=== PATIENT | male | born 1960 | race Caucasian/White ===

== ENCOUNTER 2017-06-23 13:55 | Inpatient (IN) | payer OTHER ==
[~2017-06-23] VITALS: Ht 188 cm; Wt 68.9 kg
[2017-06-23 15:07] LABS: HEMOGLOBIN 14.6 g/dL (13.5-17.5); MCH 31.9 pg (26.0-34.0); MCV 93.9 fL (80.0-100.0); MEAN PLATELET VOLUME 9.8 fL (7.4-10.4); PLATELET COUNT 314 10x3/uL (130-400); RBC 4.58 10x6/uL (4.20-6.10); RDW 12.1 % (11.5-14.5); WBC 17.3 10x3/uL (4.8-10.8)
[2017-06-23 15:21] LABS: ALBUMIN 2.7 g/dL (3.4-5.0); ALKALINE PHOSPHATASE 161 U/L (46-116); ALT (SGPT) 106 U/L (10-68); BILIRUBIN - TOTAL 0.56 mg/dL (0.2-1.3); CALC OSMOLALITY 270 mosm/kg (275-300); CALCIUM 8.8 mg/dL (8.5-10.1); CARBON DIOXIDE 32.7 mmol/L (21.0-32.0); CHLORIDE - SERUM 95 mmol/L (98-107); CREATININE - SERUM 0.6 mg/dL (0.6-1.3); GLUCOSE 148 mg/dL (74-106); POTASSIUM - SERUM 3.6 mmol/L (3.5-5.1); PROTEIN - SERUM 8.1 g/dL (6.4-8.2); SODIUM 134 mmol/L (136-145); UREA NITROGEN 12 mg/dL (7-18); eGFR NON AFRICAN AMERICAN > 90 mL/min (90-120)
[2017-06-23 15:28] LABS: APPEARANCE HAZY (CLEAR); BILIRUBIN 1+ (NEGATIVE); COLOR DK YELLOW (YELLOW); GLUCOSE 100 mg/dL (NEGATIVE); KETONE SMALL mg/dL (NEGATIVE); LEUKOCYTE ESTERASE TRACE (NEGATIVE); NITRITE NEGATIVE (NEGATIVE); PH 5.5 (5.0-6.0); PROTEIN 3+ mg/dL (NEGATIVE); SPECIFIC GRAVITY 1.015 (1.005-1.020)
[2017-06-23 15:30] LABS: MAGNESIUM - SERUM 2.2 mg/dL (1.8-2.4); PRO BNP 995 pg/mL (0-125)
[2017-06-23 15:32] LABS: BACTERIA FEW /hpf (NONE SEEN); EPITHELIAL CELLS 0-5 /hpf (0-5); GRANULAR CAST RARE /lpf (NONE SEEN); HYALINE CAST OCC /lpf (NONE SEEN); MUCUS <1+ /lpf (NONE SEEN)
[2017-06-23 15:35] LABS: LYMPHOCYTES 17 % (15-50); MONOCYTES 8 % (2-11); NEUTROPHILS 65 % (40-80); PLATELET ESTIMATE NORMAL; PLATELET MORPHOLOGY GIANT PLTS PRESENT
[2017-06-23 17:13] VITALS: BP 147/87; BMI 20.5
--- NOTE | 2017-06-23 17:37 | NUR ---
PT ARRIVED TO FLOOR VIA WHEELCHAIR. WILL ADMIT
--- NOTE | 2017-06-23 17:38 | NUR ---
DR. CARRINGTON NOTIFIED ABOUT CONSULTING PT. WILL CONTINUE OT MONITOR
--- NOTE | 2017-06-23 19:43 | NUR ---
RESTING WITH EYES CLOSED. AROUSES EASILY. DENIES ANY NEEDS. ASSESSMENTS COMPLETED. ORIENTED TO CALL LIGHT FOR ANY NEEDS.
[2017-06-23 20:00] VITALS: BP 129/82
[2017-06-24] VITALS: BP 121/68
--- NOTE | 2017-06-24 00:33 | NUR ---
QUALITY CONTROL CHECKER PRESENT IN ROOM TAKING VS. DENIES ANY NEEDS OR DISCOMFORTS.
[2017-06-24 04:00] VITALS: BP 116/66
--- NOTE | 2017-06-24 04:00 | NUR ---
MECHANICAL SHOP LABORER PRESENT IN ROOM TAKING VITAL SIGNS. DENIES ANY NEEDS.
[2017-06-24 08:00] VITALS: BP 115/76
--- NOTE | 2017-06-24 08:05 | NUR ---
AM ROUNDING- RECIEVED REPORT FROM ENTRY LEVEL ACCOUNT MANAGER NURSE ECHO. PT IS CURRENTLY SITITNG UP IN BED WITH EYES OPEN RESTING. ON 02 AT 6L VIA OXIMIZER. ON MONITOR SHOWING SR, HR 93. IV SEEN TO LEFT FOREARM THAT IS CURRENTLY SALINE LOCKED. NPO CURRENTLY FOR CT OF ABDOMEN TODAY. PT IS REQUESTING THIS NURSE GET HIM CUP OF COFFEE. THIS NURSE INFORMED PT THAT HE IS NPO CURRENTLY AND TO NOT DRINK OR EAT ANYTHING UNTIL CT SCAN. PT AGREES. WILL CONTINUE TO MONITOR AND CONTINUE WITH PLAN OF CARE.
--- NOTE | 2017-06-24 11:24 | NUR ---
1115- PT TO CT SCAN VIA WHEELCHAIR WITH PORTABLE 02. 1124- PT BACK FROM CT SCAN VIA WHEELCHAIR.
[2017-06-24 12:00] VITALS: BP 108/68
[2017-06-24 13:41] VITALS: Ht 188 cm; Wt 68.9 kg
[2017-06-24 16:00] VITALS: BP 113/72
--- NOTE | 2017-06-24 16:01 | NUR ---
CONSENTS FOR PROCEDURE SIGNED BY PT AND PLACED IN CHART. PT INSTRUCTED TO NOT EAT OR DRINK ANYTHING AFTER MIDNIGHT. PT AGREES. NPO SIGN PLACED ON PTS DOOR.
--- NOTE | 2017-06-24 17:02 | NUR ---
SCDS PLACED ON PT ORDERED.
--- NOTE | 2017-06-24 17:19 | NUR ---
CONSENTS FOR PROCEDURE SIGNED BY PT AND PLACED IN CHART. PT AWARE TO REMAIN NPO FOR PROCEDURE.
--- NOTE | 2017-06-24 18:42 | NUR ---
PT IS CURRENTLY SITTING UP IN BED WITH EYES OPEN RESTING. PT DENIES ANY NEED AT THIS CURRENT TIME. FIXED PTS SCDS FOR HIM (PT STATES ONE IS INFLATING AND THE OTHER ONE DIDN'T AT ALL). WILL CONTINUE TO MONITOR.
[2017-06-24 19:00] VITALS: BP 122/56
--- NOTE | 2017-06-24 23:57 | NUR ---
NURSE ROUNDS 20:00 - PT AWAKE, ALERT, ORIENTED, REQUESTING A NICOTINE PATCH, DENIES ANY OTHER NEEDS. PTS SON, RAN KOLB, CALLED FOR AN UPDATE ON HIS DAD. PERMISSION WAS GRANTED FROM PT TO DISCUSS HIS HEALTH INFO WITH HIS SON, RAN. DURING OUR CONVERSATION, RAN MENTIONED THAT HIS DAD HAD MENTIONED THAT HE WAS HAVING HALLUCINATIONS. I SPOKE WITH PT ABOUT THIS, AND HE STATED THAT YES, HE HAS BEEN HAVING HALLUCINATIONS, AND STARTED C/O HIS IV TUBING LEAKING FROM THE IV BAG OF FLUIDS ONTO HIS PILLOW. I CHECKED THE PILLOW, TUBING AND BAG, AND THERE WAS NOTHING LEAKING. I CALLED SHWETA SCHUMACHER, LEAN MANUFACTURING LEADER FOR [employer], WHO DID ORDER THE NICOTINE PATCH AND ASKED WHETHER PT USED ETOH. I ASKED PT IF HE DRANK ETOH, IN WHICH HE STATED HE HAS 3-5 BEERS DAILY. A PRN ORDER FOR ATIVAN WAS ALSO GIVEN ALONG WITH AN ORDER FOR A BANANA BAG. CONTINUE TO MONITOR PT CLOSELY. BED LOW, CALL LIGHT IN REACH, SIDE RAILS X 2, HOB 20 DEGREES, OXYMIZER IN PLACE.
[2017-06-25] VITALS: BP 120/75
[2017-06-25 04:00] VITALS: BP 130/72
[2017-06-25 05:22] LABS: ALBUMIN 2.3 g/dL (3.4-5.0); ALKALINE PHOSPHATASE 123 U/L (46-116); CALCIUM 8.7 mg/dL (8.5-10.1); CARBON DIOXIDE 37.2 mmol/L (21.0-32.0); CHLORIDE - SERUM 102 mmol/L (98-107); CREATININE - SERUM 0.7 mg/dL (0.6-1.3); GLUCOSE 128 mg/dL (74-106); POTASSIUM - SERUM 3.3 mmol/L (3.5-5.1); PROTEIN - SERUM 6.8 g/dL (6.4-8.2); SODIUM 143 mmol/L (136-145); eGFR NON AFRICAN AMERICAN > 90 mL/min (90-120)
[2017-06-25 05:26] LABS: HEMATOCRIT 40.4 % (42.0-54.0); HEMOGLOBIN 13.5 g/dL (13.5-17.5); LYMPHOCYTES 11.2 % (15-50); MCH 31.5 pg (26.0-34.0); MCHC 33.4 g/dL (31.0-37.0); MCV 94.2 fL (80.0-100.0); MEAN PLATELET VOLUME 9.2 fL (7.4-10.4); NEUTROPHILS 77.8 % (40-80); PLATELET COUNT 387 10x3/uL (130-400); RBC 4.29 10x6/uL (4.20-6.10); RDW 12.5 % (11.5-14.5)
[2017-06-25 05:27] LABS: ALT (SGPT) 213 U/L (10-68); CALC OSMOLALITY 288 mosm/kg (275-300); UREA NITROGEN 19 mg/dL (7-18)
--- NOTE | 2017-06-25 06:23 | NUR ---
IV POTASSIUM PIGGY BACK STARTED PER ELECTROLYTE PROTOCOL
[2017-06-25 08:00] VITALS: BP 135/77
--- NOTE | 2017-06-25 09:05 | EC ---
PATIENT:GUILLERMO KOLB DATE OF SERVICE: 06/23/17 SEX: M MEDICAL RECORD: [id number] DATE OF : 56 LOCATION:D. D.211 AGE OF PATIENT: 57 ADMISSION DATE: 06/23/17 REFERRING PHYSICIAN: INTERPRETING PHYSICIAN: ALEX WAN MD ECHOCARDIOGRAM REPORT ECHO CHARGES 4 ECHO COMPLETE CLINICAL DIAGNOSIS: EVALUATE FOR CHF ECHOCARDIOGRAPHIC MEASUREMENTS (adult normal given) AC root (d.<3.7cm) 3.5 cm LV Septum d (<1.2 cm> 1.6 cm Valve Excursion 2.1 cm LV Septum (systole) 2.0 cm Left Atria (s.<4.0cm> 3.9 cm LVPW d(<1.2cm) 1.5 cm RV (d.<2.3cm) 2.9 cm LVPW (sytole) 2.4 cm LV diastole(<5.6CM) 5.6 cm MV E-F(>70mm/sec) cm LV systole 2.8 cm LVOT Diameter 1.9 cm MV exc.(>10mm) cm Est.ejection fraction (50-75%) % Pericardial Effusion N DOPPLER: LVIT cm/sec A 59.0 cm/sec E 100 cm/sec LA cm/sec RVSP 34.0 mmHg LVOT 175 cm/sec AOP1/2T m/s Asc. Ao 184 cm/sec RVOT 85.0 cm/sec RA cm/sec PA 122 cm/sec AV Gradient Peak 14.0 mmHg AV Mean 6.2 mmHg AV Area 2.5 cm MV Gradient Peak 4.7 mmHg MV Mean 2.0 mmHg MV Area cm COMMENTS: Potato Seed Cutter: Sudarshan LEE [place] Prekindergarten Teacher: 4 Dr. Wan TAPE# PACS DATE OF SERVICE: 06/24/2017 Transthoracic Echocardiogram Report FINDINGS: 1. The left ventricle has mild concentric left ventricular hypertrophy with normal function, ejection fraction of 65%. Inflow characteristics are normal. 2. The mitral valve is shown to be normal in structure with trace mitral regurgitation. 3. The left atrium is normal size, normal function. ECHOCARDIOGRAM REPORT [id number] GUILLERMO KOLB 4. The right atrium is mildly dilated with normal function. 5. The right ventricle is mildly dilated with mild right ventricular hypertrophy. 6. The aortic valve appears structurally normal with normal function. 7. The tricuspid valve has trace tricuspid regurgitation and there is no effusion in the pericardium. 8. The IVC is shown to be normal size with appropriate collapse. CONCLUSIONS: The patient has grossly normal left ventricular function, evidence of hypertensive heart disease with no significant valvular abnormalities noted. TRANSINT:[id number] Voice Confirmation ID: [id number] DOCUMENT ID: [id number] ALEX WAN MD at 0905 CC: [id number] DICTATION DATE: 06/24/17 1654 OVERHEAD CRANE TRUCK LOADER: 06/25/17 0025 ADM IN [facility] [address] [place] [address]
[2017-06-25 12:00] VITALS: BP 118/97
[2017-06-25 13:14] LABS: HEPATITIS C ANTIBODY <0.1 (0.0-0.9)
--- NOTE | 2017-06-25 13:50 | NUR ---
TO OR PER BED
--- NOTE | 2017-06-25 15:31 | NUR ---
RETURN FROM OR PER BED
[2017-06-25 15:37] VITALS: BP 112/79
--- NOTE | 2017-06-25 16:35 | NUR ---
WITHOUT CHANGES OR DISTRESS NOTED AT THIS TIME. DENIES NEEDS.
[2017-06-25 19:00] VITALS: BP 122/65
--- NOTE | 2017-06-25 20:14 | NUR ---
PT AWAKE, ALERT, ORIENTED, ASKING FOR ICE WATER, STATES HE IS FEELING BETTER. PT DENIES ANY OTHER NEEDS. CONTINUE TO MONITOR CLOSELY. BED LOW, CALL LIGHT IN REACH, SIDE RAILS X 2, HOB 35 DEGREES.
--- NOTE | 2017-06-25 21:43 | NUR ---
PT REQUESTING PAIN MEDICATION FOR CHRONIC BACK PAIN. CURRENTLY THERE IS NOTHING ORDERED. HAVE PAGED [employer].
--- NOTE | 2017-06-25 22:17 | NUR ---
NORCO 5 MG 1 PO Q 6 HOURS PRN PAIN ORDERED FOR PT PER SHWETA SCHUMACHER, WOODEN TANK ERECTOR FOR [facility].
[2017-06-26 04:00] VITALS: BP 129/67
[2017-06-26 04:20] LABS: BASOPHILS 0.2 % (0-2); EOSINOPHILS 0 % (0-7); HEMATOCRIT 41.4 % (42.0-54.0); HEMOGLOBIN 13.4 g/dL (13.5-17.5); IMMATURE GRANULOCYTES 1.9 % (0-5); LYMPHOCYTES 10.9 % (15-50); MCH 31.3 pg (26.0-34.0); MCHC 32.4 g/dL (31.0-37.0); MEAN PLATELET VOLUME 9.3 fL (7.4-10.4); MONOCYTES 2.8 % (2-11); NEUTROPHILS 84.2 % (40-80); PLATELET COUNT 392 10x3/uL (130-400); RBC 4.28 10x6/uL (4.20-6.10); RDW 13.1 % (11.5-14.5); WBC 18.4 10x3/uL (4.8-10.8)
[2017-06-26 04:25] LABS: MCV 96.7 fL (80.0-100.0)
[2017-06-26 04:39] LABS: ALBUMIN 2.3 g/dL (3.4-5.0); ALKALINE PHOSPHATASE 120 U/L (46-116); ALT (SGPT) 163 U/L (10-68); BILIRUBIN - TOTAL 0.23 mg/dL (0.2-1.3); CALC OSMOLALITY 281 mosm/kg (275-300); CARBON DIOXIDE 30.2 mmol/L (21.0-32.0); CHLORIDE - SERUM 102 mmol/L (98-107); CREATININE - SERUM 0.7 mg/dL (0.6-1.3); GLUCOSE 163 mg/dL (74-106); POTASSIUM - SERUM 4.5 mmol/L (3.5-5.1); PROTEIN - SERUM 6.9 g/dL (6.4-8.2); SODIUM 138 mmol/L (136-145); UREA NITROGEN 17 mg/dL (7-18); eGFR NON AFRICAN AMERICAN > 90 mL/min (90-120)
--- NOTE | 2017-06-26 07:43 | NUR ---
AM ROUNDING- RECIEVED REPORT FROM CONTRACT ANALYST NURSE DANIE. PT IS CURRENTLY SITTING UP IN BED WITH EYES OPEN RESTING READING NEWS PAPER. PT STATES HE IS JUST FEELING SORE. PT INSTRUCTED TO LET ME KNOW IF NEEDING SOMETHING FOR PAIN AND I WILL TX ORDERED. PT AGREES. ON 02 AT 2L VIA NC. ON MONITOR SHOWING SR, HR 73. IV SEEN TO LEFT FOREARM THAT IS CURRENTLY SALINE LOCKED. NO NEED AT THIS CURRENT TIME. WILL CONTINUE TO MONITOR AND CONTINUE WITH PLAN OF CARE.
--- NOTE | 2017-06-26 08:36 | OP ---
PATIENT NAME: GUILLERMO KOLB MEDICAL RECORD: [id number] :56 LOCATION:D. D.2111 ADMISSION DATE:06/23/17 SURGEON: DANIEL CARRINGTON MD DATE OF OPERATION: 06/25/2017 SURGEON: Dr. Daniel Carrington. ANESTHESIA: MAC by Rowena Barnes CRNA. PREOPERATIVE DIAGNOSIS: Microhematuria. POSTOPERATIVE DIAGNOSIS: Microhematuria. FINDINGS: Vascular bulbar urethra and prostate. Single ureteral orifices bilaterally, no bladder tumors. PROCEDURES: Cystoscopy. ESTIMATED BLOOD LOSS: None. CLINICAL HISTORY: This is a 57-year-old male, who smokes 1/2 pack per day. He has oxygen dependent, chronic obstructive pulmonary disease and currently he is in the hospital with bilateral lower lobe pneumonia. He is being treated with IV Levaquin. During his hospital admission, it was noted to have microhematuria. I ordered a CT scan of the abdomen and pelvis. This showed normal kidneys with no masses and no stones and no hydronephrosis. There was some questionable thickening of the bladder wall. He comes now to have cystoscopy. Since he is already on IV antibiotics, we did not give him any further antibiotics. DESCRIPTION OF PROCEDURE: The patient was given IV sedation. He was placed in the dorsal lithotomy position and prepped and draped. A 17-Wolof cystoscope with 30-degree lens was used for visualization. Findings are as outlined above. The bleeding is most likely coming from his prostate and bulbar urethra. The bladder was emptied through the cystoscope sheath and the scope was entirely removed. TRANSINT:[id number] Voice Confirmation ID: [id number] DOCUMENT ID: [id number] DANIEL CARRINGTON MD at 0836 CC: [id number] DICTATION DATE: 06/25/17 1458 EMBOSSING MACHINE OPERATOR: 06/25/171958 ADM IN [facility] [address] [place] [address]
[2017-06-26 12:00] VITALS: BP 132/68
[2017-06-26 16:00] VITALS: BP 135/69
--- NOTE | 2017-06-26 18:05 | NUR ---
PT IS CURRENTLY SITTING UP IN BED WITH EYES OPEN RESTING. PT IS CURRENTLY REQUESTING TO BE UNHOOKED FROM IV FLUIDS DUE TO NEEDING TO USE BATHROOM. I UNHOOKED PT REQUESTED. PT DENIES ANY FURTHER NEED AT THIS CURRENT TIME.
--- NOTE | 2017-06-26 20:40 | NUR ---
PT LYING IN BED, AWAKE, ALERT, ORIENTED, DENIES ANY NEEDS. CONTINUE TO MONITOR PT CLOSELY. BED LOW, CALL LIGHT IN REACH, SIDE RAILS X 2, HOB 30 DEGREES.
[2017-06-26 20:41] VITALS: BP 132/64
[2017-06-27] VITALS: BP 138/85
[2017-06-27 04:00] VITALS: BP 125/67
[2017-06-27 04:58] LABS: BASOPHILS 0.2 % (0-2); EOSINOPHILS 0.1 % (0-7); HEMATOCRIT 43.3 % (42.0-54.0); HEMOGLOBIN 13.9 g/dL (13.5-17.5); LYMPHOCYTES 6.4 % (15-50); MCH 31.1 pg (26.0-34.0); MCHC 32.1 g/dL (31.0-37.0); MCV 96.9 fL (80.0-100.0); MEAN PLATELET VOLUME 9.2 fL (7.4-10.4); MONOCYTES 8.4 % (2-11); NEUTROPHILS 80.9 % (40-80); PLATELET COUNT 415 10x3/uL (130-400); RBC 4.47 10x6/uL (4.20-6.10); RDW 13.2 % (11.5-14.5); WBC 19.4 10x3/uL (4.8-10.8)
[2017-06-27 05:32] LABS: ALBUMIN 2.4 g/dL (3.4-5.0); ALKALINE PHOSPHATASE 113 U/L (46-116); ALT (SGPT) 122 U/L (10-68); BILIRUBIN - TOTAL 0.39 mg/dL (0.2-1.3); CALC OSMOLALITY 277 mosm/kg (275-300); CALCIUM 8.2 mg/dL (8.5-10.1); CARBON DIOXIDE 29.9 mmol/L (21.0-32.0); CHLORIDE - SERUM 101 mmol/L (98-107); CREATININE - SERUM 0.7 mg/dL (0.6-1.3); GLUCOSE 140 mg/dL (74-106); POTASSIUM - SERUM 4.8 mmol/L (3.5-5.1); PROTEIN - SERUM 7.1 g/dL (6.4-8.2); SODIUM 138 mmol/L (136-145); UREA NITROGEN 13 mg/dL (7-18); eGFR NON AFRICAN AMERICAN > 90 mL/min (90-120)
--- NOTE | 2017-06-27 05:49 | NUR ---
PT AWAKE, ALERT, ORIENTED, DENIES ANY NEEDS AT THIS TIME. CONTINUE TO MONITOR CLOSELY. PT STATES HE DID HAVE A LARGE BM THIS SHIFT. BED LOW, CALL LIGHT IN REACH, SIDE RAILS X 2, HOB 30 DEGREES.
--- NOTE | 2017-06-27 07:46 | NUR ---
AM ROUNDING- RECIEVED REPORT FROM ESCALATION ENGINEER NURSE DANIE. PT IS CURRENTLY SITTING UP IN BED WITH EYES OPEN RESTING WAITING ON BREAKFAST TRAY TO GET HER AND NEWSPAPER. ON ROOM AIR CURRENTLY (PT WAS ON 02 AT 2L VIA NC). PT STATES HE NEEDED A BREAK FROM 02 AND DID NOT FEEL SOB AT THIS TIME. ON MONITOR SHOWING SR, HR 87. IV SEEN TO LEFT FOREARM THAT IS CURRENTLY SALINE LOCKED. GAVE PT CUP OF COFFEE AND NEWPAPER REQUESTED. WILL CONTINUE TO MONITOR AND CONTINUE WITH PLAN OF CARE.
[2017-06-27 08:00] VITALS: BP 127/70
--- NOTE | 2017-06-27 11:02 | NUR ---
PT INSTRUCTED TO NOT EAT OR DRINK ANYTHING ORDERED FOR PROCEDURE. PT AGREES. NPO SIGN PLACED ON DOOR.
[2017-06-27 11:57] VITALS: BP 137/75
--- NOTE | 2017-06-27 15:43 | NUR ---
1440- PT MRI VIA WHEELCHAIR. 1543- PT BACK FROM MRI VIA WHEELCHAIR.
--- NOTE | 2017-06-27 18:22 | NUR ---
PT IS CURRENTLY SITTING UP IN BED EATING DINNER. PT DENIES ANY NEED AT THIS CURRENT TIME. WILL CONTINUE TO MONITOR.
[2017-06-27 20:00] VITALS: BP 153/79
--- NOTE | 2017-06-27 22:30 | NUR ---
PT IV LEAKING AT THE SITE, PT REPORTS BURING AT THE IV SITE. NO REDNESS OR SWELLING NOTED. IVF'S STOPPED PER PT REQUEST. PT REFUSES TO BE RESITED. STATES HE IS PLANNING ON GOING IN THE MORNING.
[2017-06-28 04:00] VITALS: BP 135/65
[2017-06-28 05:46] LABS: BASOPHILS 0.1 % (0-2); EOSINOPHILS 0 % (0-7); HEMATOCRIT 43.9 % (42.0-54.0); HEMOGLOBIN 14.4 g/dL (13.5-17.5); IMMATURE GRANULOCYTES 3.3 % (0-5); MCH 31.2 pg (26.0-34.0); MCHC 32.8 g/dL (31.0-37.0); MCV 95.2 fL (80.0-100.0); MEAN PLATELET VOLUME 9.3 fL (7.4-10.4); MONOCYTES 7.4 % (2-11); NEUTROPHILS 84.2 % (40-80); PLATELET COUNT 475 10x3/uL (130-400); RBC 4.61 10x6/uL (4.20-6.10); RDW 13.1 % (11.5-14.5); WBC 19.3 10x3/uL (4.8-10.8)
[2017-06-28 06:31] LABS: ALBUMIN 2.6 g/dL (3.4-5.0); ALKALINE PHOSPHATASE 113 U/L (46-116); ALT (SGPT) 95 U/L (10-68); BILIRUBIN - TOTAL 0.36 mg/dL (0.2-1.3); CALCIUM 8.6 mg/dL (8.5-10.1); CHLORIDE - SERUM 101 mmol/L (98-107); CREATININE - SERUM 0.8 mg/dL (0.6-1.3); GLUCOSE 142 mg/dL (74-106); POTASSIUM - SERUM 4.7 mmol/L (3.5-5.1); PROTEIN - SERUM 7.3 g/dL (6.4-8.2); SODIUM 136 mmol/L (136-145); eGFR NON AFRICAN AMERICAN > 90 mL/min (90-120)
[2017-06-28 06:35] LABS: CALC OSMOLALITY 276 mosm/kg (275-300); UREA NITROGEN 21 mg/dL (7-18)
--- NOTE | 2017-06-28 06:46 | NUR ---
PT UP AND AMBULATING AROUND THE UNIT THIS AM, TOLERATING ACTIVITY WELL. WILL CONT TO MONITOR.
--- NOTE | 2017-06-28 06:50 | NUR ---
PT ELECTROLYTES ON LABS WNL. NO INTERVENTION PER PROTOCOL THIS AM.
--- NOTE | 2017-06-28 07:48 | NUR ---
AM ROUNDS COMPLETED. INTRODUCED MYSELF TO PT PRIMARY RN FOR TODAYS SHIFT. PT A&O SITTING UP IN BED RESTING QUIETLY. RR NONLABORED. PT DENIES ANY CURRENT PAIN OR NEEDS AT THIS TIME. WILL PULL MORNING MEDICATIONS AND CONTINUE WITH PLAN OF CARE. CL IN REACH, BED IN LOWEST, SIDE RAILS X2. WILL CPOC.
[2017-06-28 08:00] VITALS: BP 132/73
--- NOTE | 2017-06-28 08:00 | NUR ---
PT REFUSED FULL BODY ASSESSMENT OR AUSCULTATION R/T HOPING TO BE DISCHARGED TODAY. PT IS A&O SITTING UP IN BED. DENIES ANY CURRENT PAIN OR NEEDS. PIV NOTED TO AUDREY DRSG CDI AND SWAB CAPS IN USE. PATENT AND FLUSHES GOOD WITH GOOD BLOOD RETURN. RR ARE NONLABORED ON RA. WILL CPOC AND LOOK FOR DISCHARGE PLANNING.
[2017-06-28 12:00] VITALS: BP 147/74
[2017-06-28] MEDS ORDERED: LEVAQUIN750 MG PO (12:23)
[2017-06-28] MEDS ORDERED: PREDNISONE10 MG PO (12:23)
[2017-06-28] MEDS ORDERED: NICODERM C1 PATCH .1 TRANSDERM (12:23)
[2017-06-28] MEDS ORDERED: FLORAJEN3 CAPS460 MG PO (12:23)
--- NOTE | 2017-06-28 14:37 | NUR ---
D/C PTS L.AC PIV WITH CATHETER TIP FULLY INTACT. DISCHARGE TEACHING PROVIDED AND PAPERS SIGNED. PTS TRANSPORTATION IS HERE AND HE IS READY TO LEAVE. NO FURTHER QUESTIONS OR CONCERNS.
--- NOTE | 2017-06-28 17:59 | NUR ---
Patient Name: GUILLERMO KOLB Admission Status: ER Accout number: [id number] Admission Date: 06-23-2017 : 1960 Admission Diagnosis:SHORTNESS OF BREATH Attending: CHRISTOPHER BOWENS Current LOS: 5 Anticipated DC Date: 06-28-2017 Planned Disposition: Home Primary Insurance: [facility] PPO Discharge Planning Comments: * Is the patient Alert and Oriented? Yes 0 * How many steps to enter\exit or inside your home? 4 0 * PCP UNKNOWN PRIMARY CARE - PER PATIENT 0 * Pharmacy [address] 0 * Preadmission Environment Home with Family 0 * ADLs Independent 0 * Equipment None 0 * Other Equipment NO MEDICAL EQUIPMENT PROVIDER PREFERENCE 0 * List name and contact numbers for known caregivers / representatives who currently or will assist patient after discharge: JOSEF KOLB, SON, RAN KOLB, SON, 0 * Community resources currently utilized None 0 * Please name any agencies selected above. NONE 0 * Additional services required to return to the preadmission environment? No 0 * Can the patient safely return to the preadmission environment? Yes 0 * Has this patient been hospitalized within the prior 30 days at any hospital? No 0 CM MET WITH PT IN ROOM TO DISCUSS DISCHARGE PLANNING AND NEEDS. PT REPORTS LIVING AT HOME INDEPENDENTLY WITH AND ADULT ROOMMATE. PT HAS NO MEDICAL EQUIPMENT AND NO OUTSIDE SERVICES ASSISTING IN THE HOME. CM DISCUSSED AVAILABILITY OF HOME HEALTH, REHAB SERVICES AND MEDICAL EQUIPMENT. PT DENIES DISCHARGE NEEDS, REPORTS A FRIEND WILL PICK HIM UP FOR DISCHARGE HOME. PHYSICAL ADDRESS AT HOME IS [address] [place] [address]. CM SPOKE TO HOUSE REPAIRER, ADVISED OF DISCHARGE ORDER AND NOTATION BY DR. LUJAN FOR POSSIBLE OVERNIGHT PULSE OXIMETRY TESTING. CM CALLED AND SPOKE TO DR. LUJAN WHO ADVISED THAT THIS CAN BE ORDERED IF PT WANTS THE TESTING AND IT IS NOT NECESSARY AT THIS TIME. CM SPOKE TO PT WHO REPORTED THAT HE DID NOT THINK HE NEEDED OVERNIGHT OXYGEN TESTING AND WANTS DISCHARGED SOON POSSIBLE. CM NOTIFIED HOUSE REPAIRER. Chisel Trimmer: Ottoniel Lopez
[2017-06-29 07:23] LABS: IMMUNOGLOBULIN E 204 IU/mL (0-100)
--- NOTE | 2017-06-30 18:19 | DS ---
PATIENT:GUILLERMO KOLB :56 MEDICAL RECORD: [id number] DISCHARGE SUMMARY ADMISSION DATE: 06/23/17 DISCHARGE DATE: 06/28/17 DATE OF ADMISSION: 06/23/2017 DATE OF DISCHARGE: 06/28/2017 ADMITTING DIAGNOSES: Acute exacerbation of chronic obstructive pulmonary disease, dyspnea and pneumonia. HOSPITAL COURSE: This is a gentleman of Dr. Kimble's admitted with diagnoses as outlined above. Details are well-outlined in the history of the present illness, H&P. All events, lab procedures and diagnostic testing are well documented in the records. IMAGING: Showed: 1. Chest x-ray, bilateral lower lobe pneumonia, worse on right than left, and emphysema. 2. CT of the abdomen and pelvis, no obstructive urolithiasis, had a right kidney cyst, a lesion in the left kidney, abnormal fistula connection suggested between rectum and distal sigmoid, ciwjwrsz-gq-ajkxfk sigmoid diverticulosis, no acute diverticulitis and right lung base consolidation, likely pneumonia. Please refer to report. 3. Repeat chest x-ray, no significant change. 4. Renal ultrasound, complex upper pole right renal cyst, simple cyst in the left upper pole of the left kidney. 5. MRI of the abdomen demonstrated no evidence of enhancement within the multiseptated upper pole of the right renal cystic lesion. This was consistent with a benign Bosniak II cyst. Refer to this report, no suspicious renal masses noted. The patient was admitted with diagnoses as outlined above. All events, lab procedures and diagnostic testing are well documented in the records. Started on IV antibiotics, steroids and nicotine patch. Hepatitis panel ordered. He had some elevated AST and ALT. CONSULTANTS: 1. Dr. Keith, urology. His recommendations were followed. The patient was taken for cystoscopy. There was no mass in the bladder. No bladder tumor. 2. Dr. Collins consulted for pulmonary management. His recommendations were followed. RECOMMENDATIONS: Include completing 7 days of antibiotics. His hepatitis panel was negative. Overall, he improved. He is ambulating. He is eating. He is stable for dismissal home. Please refer to both consultants' notes. He also has possible sleep apnea, will need overnight oximetry as an outpatient. We will let Dr. Kimble follow up on that. He is dismissed home. DIAGNOSES: The same as above. 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 He was on delirium tremens precautions here. Greater than 30 minutes was spent on this discharge. Please refer to med rec. He is afebrile, vitals are stable. We will follow up with Dr. Kimble and follow up with Dr. Collins. TRANSINT:[id number] Voice Confirmation ID: [id number] DOCUMENT ID: [id number] Dictated By: SHWETA SCHUMACHER RN I have interviewed/examined the above patient and agree with these documented findings. JAY CABEZAS MD at 1819 CC: [id number] DICTATION DATE: 06/28/17 1408 ADVICE LINE RN: 06/29/17 0810 DIS IN 06/28/17 [facility] [address] [place] [address]
[2017-07-01 15:18] LABS: IMMUNOGLOBULIN A 405 mg/dL (90-386); IMMUNOGLOBULIN G 1306 mg/dL (700-1600)
== END 2017-06-28 14:56 | disposition home or self-care (01) | DRG 189 ==
LOC: D.ER 13:55 → D.M2 16:27
PROVIDERS: Emergency Medicine; Family Medicine Adult Medicine; Internal Medicine Pulmonary Disease; Urology; ADMIT Emergency Medicine
PROC: 0TJB8ZZ Inspection of Bladder, Via Natural or Artificial Opening Endoscopic (ICD-10-PCS; principal; 2017-06-25 12:00)
DX: J96.02 Acute respiratory failure with hypercapnia (principal); J15.6 Pneumonia due to other Gram-negative bacteria; J13 Pneumonia due to Streptococcus pneumoniae; J44.0 Chronic obstructive pulmonary disease with (acute) lower respiratory infection; J44.1 Chronic obstructive pulmonary disease with (acute) exacerbation; F17.203 Nicotine dependence unspecified, with withdrawal; J96.01 Acute respiratory failure with hypoxia; R31.29 Other microscopic hematuria; I50.9 Heart failure, unspecified; N36.8 Other specified disorders of urethra; N28.1 Cyst of kidney, acquired; K57.90 Diverticulosis of intestine, part unspecified, without perforation or abscess without bleeding; K60.5 Anorectal fistula

== ENCOUNTER → 2018-05-16 14:17 | Outpatient (CLI) | payer OTHER ==
[2017-06-24 13:41] VITALS: BMI 20.5
[~2018-05-16 14:17] MED LIST: DALIRESP500 MCG PO; FLORAJEN3 CAPS460 MG PO; LEVAQUIN750 MG PO; NICODERM C1 PATCH .1 TRANSDERM; Nicoderm [PBKC] TRANSDERM; PREDNISONE10 MG PO; SINGULAIR10 MG PO
== END | disposition home or self-care (01) ==
LOC: D.CT 14:17
DX: J44.9 Chronic obstructive pulmonary disease, unspecified (principal)

== ENCOUNTER → 2018-05-23 07:45 | Outpatient (CLI) | payer OTHER ==
[2017-06-24 13:41] VITALS: BMI 20.5
== END | disposition home or self-care (01) ==
LOC: D.RT 07:45
DX: J44.9 Chronic obstructive pulmonary disease, unspecified (principal)

== ENCOUNTER 2018-06-26 15:10 | Inpatient (IN) | payer OTHER ==
[~2018-06-26] VITALS: Ht 188 cm; Wt 73.6 kg
[~2018-06-26 15:10] MED LIST changes: -DALIRESP500 MCG PO; -Nicoderm [PBKC] TRANSDERM; -SINGULAIR10 MG PO
[2018-06-26 16:13] LABS: BASOPHILS 0.3 % (0-2); EOSINOPHILS 0.2 % (0-7); HEMATOCRIT 40.3 % (42.0-54.0); IMMATURE GRANULOCYTES 0.6 % (0-5); LYMPHOCYTES 9.2 % (15-50); MCH 31.3 pg (26.0-34.0); MCHC 34.7 g/dL (31.0-37.0); MCV 90.2 fL (80.0-100.0); MEAN PLATELET VOLUME 9.4 fL (7.4-10.4); MONOCYTES 14.9 % (2-11); NEUTROPHILS 74.8 % (40-80); RBC 4.47 10x6/uL (4.20-6.10); RDW 13.3 % (11.5-14.5); WBC 17.8 10x3/uL (4.8-10.8)
[2018-06-26 16:14] LABS: PLATELET COUNT 324 10x3/uL (130-400)
[2018-06-26 16:30] LABS: ALBUMIN 2.5 g/dL (3.4-5.0); ALKALINE PHOSPHATASE 128 U/L (46-116); ALT (SGPT) 59 U/L (10-68); BILIRUBIN - TOTAL 0.73 mg/dL (0.2-1.3); CALC OSMOLALITY 266 mosm/kg (275-300); CALCIUM 8.5 mg/dL (8.5-10.1); CARBON DIOXIDE 29.3 mmol/L (21.0-32.0); CHLORIDE - SERUM 94 mmol/L (98-107); CREATININE - SERUM 0.7 mg/dL (0.6-1.3); GLUCOSE 134 mg/dL (74-106); POTASSIUM - SERUM 3.4 mmol/L (3.5-5.1); PROTEIN - SERUM 8.1 g/dL (6.4-8.2); SODIUM 133 mmol/L (136-145); UREA NITROGEN 11 mg/dL (7-18); eGFR NON AFRICAN AMERICAN > 90 mL/min (90-120)
[2018-06-26 17:35] VITALS: BP 115/74
[2018-06-26 18:18] VITALS: BMI 21.5
[2018-06-26 20:00] VITALS: BP 122/72
[2018-06-27] VITALS: BP 123/63
[2018-06-27 05:00] LABS: BASOPHILS 0.3 % (0-2); EOSINOPHILS 0.6 % (0-7); HEMATOCRIT 41.3 % (42.0-54.0); HEMOGLOBIN 13.7 g/dL (13.5-17.5); IMMATURE GRANULOCYTES 0.8 % (0-5); LYMPHOCYTES 12.9 % (15-50); MCH 30.9 pg (26.0-34.0); MCHC 33.2 g/dL (31.0-37.0); MEAN PLATELET VOLUME 9.5 fL (7.4-10.4); MONOCYTES 13.1 % (2-11); NEUTROPHILS 72.3 % (40-80); PLATELET COUNT 330 10x3/uL (130-400); RBC 4.44 10x6/uL (4.20-6.10); RDW 13.6 % (11.5-14.5); WBC 20.4 10x3/uL (4.8-10.8)
[2018-06-27 05:09] LABS: CALC OSMOLALITY 270 mosm/kg (275-300); CALCIUM 8.4 mg/dL (8.5-10.1); CARBON DIOXIDE 33.5 mmol/L (21.0-32.0); CHLORIDE - SERUM 96 mmol/L (98-107); CREATININE - SERUM 0.7 mg/dL (0.6-1.3); GLUCOSE 138 mg/dL (74-106); SODIUM 135 mmol/L (136-145); UREA NITROGEN 9 mg/dL (7-18); eGFR NON AFRICAN AMERICAN > 90 mL/min (90-120)
[2018-06-27 06:31] VITALS: BP 90/57
[2018-06-27 07:59] VITALS: BP 120/58
[2018-06-27 11:03] VITALS: BP 113/69
[2018-06-27 11:06] VITALS: Ht 188 cm; Wt 73.6 kg
[2018-06-27 15:12] VITALS: BP 94/68
[2018-06-27 22:45] VITALS: BP 109/67
[2018-06-28 06:43] VITALS: BP 127/72
[2018-06-28 07:57] VITALS: BP 105/50
[2018-06-28 11:10] LABS: BASOPHILS 0.2 % (0-2); EOSINOPHILS 0 % (0-7); HEMATOCRIT 38.5 % (42.0-54.0); HEMOGLOBIN 12.8 g/dL (13.5-17.5); LYMPHOCYTES 6.6 % (15-50); MCH 30.6 pg (26.0-34.0); MCHC 33.2 g/dL (31.0-37.0); MCV 92.1 fL (80.0-100.0); MEAN PLATELET VOLUME 9.3 fL (7.4-10.4); MONOCYTES 7.6 % (2-11); NEUTROPHILS 84.6 % (40-80); PLATELET COUNT 379 10x3/uL (130-400); RBC 4.18 10x6/uL (4.20-6.10); RDW 13.7 % (11.5-14.5); WBC 15.8 10x3/uL (4.8-10.8)
[2018-06-28 11:36] LABS: ALBUMIN 2.3 g/dL (3.4-5.0); ALKALINE PHOSPHATASE 108 U/L (46-116); BILIRUBIN - TOTAL 0.31 mg/dL (0.2-1.3); CALCIUM 8.5 mg/dL (8.5-10.1); CARBON DIOXIDE 32.5 mmol/L (21.0-32.0); CHLORIDE - SERUM 98 mmol/L (98-107); CREATININE - SERUM 0.6 mg/dL (0.6-1.3); PROTEIN - SERUM 7.4 g/dL (6.4-8.2); SODIUM 137 mmol/L (136-145); eGFR NON AFRICAN AMERICAN > 90 mL/min (90-120)
[2018-06-28 11:39] LABS: ALT (SGPT) 104 U/L (10-68); CALC OSMOLALITY 278 mosm/kg (275-300); GLUCOSE 192 mg/dL (74-106); POTASSIUM - SERUM 3.3 mmol/L (3.5-5.1); UREA NITROGEN 12 mg/dL (7-18)
[2018-06-28 11:59] VITALS: BP 126/66
[2018-06-28] MEDS ORDERED: Nicoderm [PBKC] TRANSDERM (13:45)
[2018-06-28] MEDS ORDERED: LEVAQUIN750 MG PO (13:45)
[2018-06-28] MEDS ORDERED: DALIRESP500 MCG PO (13:47)
[2018-06-28] MEDS ORDERED: SINGULAIR10 MG PO (13:47)
[2018-06-28] MEDS ORDERED: PREDNISONE10 MG PO (13:50)
== END 2018-06-28 14:30 | disposition home or self-care (01) | DRG 193 ==
LOC: D.M2 15:10
PROVIDERS: Internal Medicine Nephrology
DX: J18.9 Pneumonia, unspecified organism (principal); J96.22 Acute and chronic respiratory failure with hypercapnia; J96.21 Acute and chronic respiratory failure with hypoxia; J44.1 Chronic obstructive pulmonary disease with (acute) exacerbation; E87.1 Hypo-osmolality and hyponatremia; F17.213 Nicotine dependence, cigarettes, with withdrawal; J44.0 Chronic obstructive pulmonary disease with (acute) lower respiratory infection; J20.9 Acute bronchitis, unspecified; E87.6 Hypokalemia; J30.9 Allergic rhinitis, unspecified; F10.10 Alcohol abuse, uncomplicated; R74.8 Abnormal levels of other serum enzymes

== ENCOUNTER 2018-12-01 15:04 | Emergency (ER) | payer OTHER ==
[~2018-12-01] VITALS: Ht 188 cm; Wt 77.3 kg
[~2018-12-01 15:04] MED LIST changes: +DALIRESP500 MCG PO; +Nicoderm [PBKC] TRANSDERM; +SINGULAIR10 MG PO
[2018-12-01 15:17] VITALS: Ht 188 cm; Wt 77.3 kg
[2018-12-01 16:13] LABS: APPEARANCE CLEAR (CLEAR); BILIRUBIN 1+ (NEGATIVE); COLOR DK YELLOW (YELLOW); GLUCOSE NEGATIVE (NEGATIVE); KETONE MODERATE mg/dL (NEGATIVE); NITRITE POSITIVE (NEGATIVE); PROTEIN 1+ mg/dL (NEGATIVE); SPECIFIC GRAVITY 1.015 (1.005-1.020)
[2018-12-01 16:15] LABS: BACTERIA MODERATE /hpf (NONE SEEN); MUCUS <1+ /lpf (NONE SEEN); RED CELLS - URINE 0-5 /hpf (0-5)
[2018-12-01] MEDS ORDERED: TORADOL10 MG PO (17:01)
[2018-12-01] MEDS ORDERED: LEVOFLOXACIN500 MG PO (17:01)
[2018-12-01 17:35] VITALS: BP 149/79
== END 2018-12-01 17:36 | disposition home or self-care (01) ==
LOC: D.ER 15:04
PROVIDERS: Emergency Medicine
DX: N45.1 Epididymitis (principal); N39.0 Urinary tract infection, site not specified

== ENCOUNTER → 2018-12-08 18:55 | Outpatient (CLI) | payer OTHER ==
[2018-12-01 15:17] VITALS: BMI 21.8
[~2018-12-08 18:55] MED LIST changes: +LEVOFLOXACIN500 MG PO; +TORADOL10 MG PO
== END | disposition home or self-care (01) ==
LOC: D.LABREF 18:55
DX: D72.829 Elevated white blood cell count, unspecified (principal); R31.9 Hematuria, unspecified

== ENCOUNTER 2018-12-14 12:05 | Inpatient (IN) | payer OTHER ==
[~2018-12-14] VITALS: Ht 188 cm; Wt 75.8 kg
[2018-12-14] VITALS (11 sets, daily range): BP systolic 87–105; BP diastolic 57–72; BMI 21.5
--- NOTE | ~2018-12-14 | OP ---
PATIENT NAME: GUILLERMO KOLB MEDICAL RECORD: [id number] :56 LOCATION[facility] D.2303 ADMISSION DATE:12/14/18 SURGEON: MAGALI MENDOZA MD DATE OF OPERATION: 12/14/2018 PREOPERATIVE DIAGNOSES: 1. Scrotal abscess. 2. Pneumaturia. 3. Urinary tract infection. 4. Chronic obstructive pulmonary disease. 5. Colorectal fistula. POSTOPERATIVE DIAGNOSES: 1. Scrotal abscess. 2. Pneumaturia. 3. Urinary tract infection. 4. Chronic obstructive pulmonary disease. 5. Colorectal fistula. PROCEDURE: I and D of the scrotum. SURGEON: Magali Mendoza MD CO-SURGEON: Dr. Keith REPORT OF OPERATION: The patient's scrotum was prepped and draped in sterile fashion. Prior to my entering the room Dr. Keith had performed a cystoscopy. At this point, we examined the patient's scrotum. There is a marked amount of erythema and induration. There was fluctuance noted on the most dependent aspect of the scrotum. A longitudinal incision was made in the medial aspect of the scrotum and there was a large amount of purulence, which was found under high pressure. The cultures were taken times 2 and we suctioned out the scrotal abscess. This was foul smelling. We then irrigated out the wound with peroxide and saline solution. We then inspected the area and could find no sign of a fistulous tract or any sign of any tracts leading up into the perineum. The patient had a scant amount of necrotic tissue, which was taken down with finger dissections and occasionally with sharp dissection. Once we had the area clean we irrigated out one last time with peroxide and saline solution and then packed the wound with peroxide soaked Kerlix. This was covered with 4 x 4s and an ABD pad. COMPLICATIONS: None. CONDITION: Stable. ANESTHESIA: Epidural and MAC. BLOOD LOSS: Minimal. TRANSINT:[id number] Voice Confirmation ID: [id number] DOCUMENT ID: [id number] OPERATIVE REPORT [id number] KOLBGUILLERMO CHRISTIAN MD CC: [id number] DICTATION DATE: 12/14/18 184 COMPUTER ART INSTRUCTOR: 12/14/182236 ADM IN [facility] [id number] [place] [address]
[2018-12-14 12:33] LABS: HEMATOCRIT 46.1 % (42.0-54.0); MCH 31.4 pg (26.0-34.0); MCHC 34.7 g/dL (31.0-37.0); MCV 90.6 fL (80.0-100.0); MEAN PLATELET VOLUME 8.7 fL (7.4-10.4); PLATELET COUNT 423 10x3/uL (130-400); RBC 5.09 10x6/uL (4.20-6.10); RDW 12.9 % (11.5-14.5); WBC 22.1 10x3/uL (4.8-10.8)
[2018-12-14 12:54] LABS: ALKALINE PHOSPHATASE 102 U/L (46-116); ALT (SGPT) 20 U/L (10-68); BILIRUBIN - TOTAL 0.81 mg/dL (0.2-1.3); CALCIUM 8.6 mg/dL (8.5-10.1); CARBON DIOXIDE 24.4 mmol/L (21.0-32.0); CHLORIDE - SERUM 95 mmol/L (98-107); CREATININE - SERUM 0.8 mg/dL (0.6-1.3); POTASSIUM - SERUM 3.8 mmol/L (3.5-5.1); PROTEIN - SERUM 8.3 g/dL (6.4-8.2); SODIUM 132 mmol/L (136-145); UREA NITROGEN 13 mg/dL (7-18); eGFR NON AFRICAN AMERICAN > 90 mL/min (90-120)
[2018-12-14 12:56] LABS: BASOPHILS 1 % (0-2); LYMPHOCYTES 13 % (15-50); MONOCYTES 4 % (2-11); NEUTROPHILS 82 % (40-80); PLATELET ESTIMATE INCREASED
[2018-12-14 12:57] LABS: ALBUMIN 2.7 g/dL (3.4-5.0); CALC OSMOLALITY 266 mosm/kg (275-300); GLUCOSE 135 mg/dL (74-106)
[2018-12-14 14:32] LABS: CKMB 0.4 U/L (0.0-3.6); CREATINE KINASE 32 UL (21-232)
[2018-12-14 15:55] LABS: APPEARANCE CLEAR (CLEAR); BILIRUBIN NEGATIVE (NEGATIVE); COLOR YELLOW (YELLOW); GLUCOSE NEGATIVE (NEGATIVE); KETONE MODERATE mg/dL (NEGATIVE); NITRITE NEGATIVE (NEGATIVE); PROTEIN 1+ mg/dL (NEGATIVE); UROBILINOGEN NORMAL (NORMAL)
[2018-12-14 15:56] LABS: RED CELLS - URINE 0-5 /hpf (0-5)
[2018-12-14 15:57] LABS: BACTERIA FEW /hpf (NONE SEEN)
[2018-12-14 15:58] LABS: EPITHELIAL CELLS OCC /hpf (0-5)
--- NOTE | 2018-12-14 16:26 | NUR ---
DR CARRINGTON AT BS
--- NOTE | 2018-12-14 18:32 | NUR ---
REPORT TO HUMAIRA IN ICU, PT STILL IN OR
--- NOTE | 2018-12-14 19:30 | NUR ---
Patient from OR to 2303, connected to monitor. Patient AO x4, calm and cooperative. S1/S2 noted NSR on telemetry with HR 86, rythmic and regular. Breathing is even/unlabored on room air with O2 sat 96%, lung sounds clear throughout. Abdomen is soft/round with bowel sounds active x4, non-tender. Scrotal incision with dressing CDI, harding secured. All pulses palpable with cap refill < 3 sec, skin warm/dry. Epidural in use, line secure/intact. Patient denies pain or other needs at this time, repositioned for comfort. All VSS and will continue to monitor.
--- NOTE | 2018-12-14 21:05 | NUR ---
Patient resting in bed with eyes open, discussed treatment plan with all questions answered to satisfaction. HS meds given without difficulty, denies pain or other needs at this time. All VSS and will continue to monitor.
--- NOTE | 2018-12-14 23:15 | NUR ---
Reassessment completed per flowsheet, no changes from previous assessment. S1/S2 noted NSR on telemetry with HR 79, rythmic and regular. Breathing is even/unlabored on room air with O2 sat 97%, lung sounds clear throughout. Epidural in use, line secure/intact. Groin incision dressing CDI, harding secured with clear yellow urine. All pulses palpable with cap refill < 3 sec, skin warm/dry. Denies pain or other needs at this time, see flowsheet for details. All VSS and will continue to monitor.
[2018-12-15] VITALS (12 sets, daily range): BP systolic 84–112; BP diastolic 40–69; Ht 188 cm; Wt 75.8 kg
--- NOTE | 2018-12-15 01:10 | NUR ---
Patient sleeping in bed with eyes closed, no s/s of distress at this time. Groin dressing CDI, harding secured. Epidural line secure/intact, no further needs at this time and will continue to monitor.
--- NOTE | 2018-12-15 03:10 | NUR ---
Reassessment completed per flowsheet, no changes from previous assessment. Patient AOx4, calm and cooperative. S1/S2 noted NSR on telemetry with HR 63, rythmic and regular. Breathing is even/unlabored on room air with O2 sat 97%, lung sounds clear throughout. Groin incision dressing CDI, harding secured. All pulses palpable with cap refill < 3 sec, skin warm/dry. Epidural in use, line secure/intact. Denies pain or other needs at this time, see flowsheet for details. All VSS and will continue to monitor.
--- NOTE | 2018-12-15 05:05 | NUR ---
Patient sleeping in bed with eyes closed, no s/s of distress at this time. Groin dressing intact with mesh undergarments in place, bloody drainage noted on dressing. Epidural in ise, line secure/intact. Denies pain or other needs, all VSS and will continue to monitor.
[2018-12-15 05:06] LABS: BASOPHILS 0.3 % (0-2); EOSINOPHILS 1.5 % (0-7); HEMATOCRIT 36.9 % (42.0-54.0); IMMATURE GRANULOCYTES 0.7 % (0-5); LYMPHOCYTES 14.9 % (15-50); MCH 30.5 pg (26.0-34.0); MCHC 33.1 g/dL (31.0-37.0); MCV 92.3 fL (80.0-100.0); MONOCYTES 13.1 % (2-11); NEUTROPHILS 69.5 % (40-80); PLATELET COUNT 427 10x3/uL (130-400)
[2018-12-15 05:17] LABS: ALKALINE PHOSPHATASE 68 U/L (46-116); ALT (SGPT) 16 U/L (10-68); BILIRUBIN - TOTAL 0.56 mg/dL (0.2-1.3); CALCIUM 7.6 mg/dL (8.5-10.1); CARBON DIOXIDE 28.3 mmol/L (21.0-32.0); CHLORIDE - SERUM 99 mmol/L (98-107); CREATININE - SERUM 0.7 mg/dL (0.6-1.3); POTASSIUM - SERUM 3.5 mmol/L (3.5-5.1); PROTEIN - SERUM 6.3 g/dL (6.4-8.2); SODIUM 136 mmol/L (136-145); eGFR NON AFRICAN AMERICAN > 90 mL/min (90-120)
[2018-12-15 05:19] LABS: HEMOGLOBIN 12.2 g/dL (13.5-17.5); WBC 15.7 10x3/uL (4.8-10.8)
[2018-12-15 05:23] LABS: CALC OSMOLALITY 269 mosm/kg (275-300); GLUCOSE 84 mg/dL (74-106); UREA NITROGEN 9 mg/dL (7-18)
--- NOTE | 2018-12-15 08:00 | NUR ---
REPORT RECEIVED AND CARE ASSUMED. LYING IN BED, AWAKE AND ORIENTED X 3. EPIDURAL IN USE. DENIES ANY PAIN AT THIS TIME. IV PATENT. WILL CONTINUE TO MONITOR.
--- NOTE | 2018-12-15 09:00 | NUR ---
DR. CARROLL HERE FOR ROUNDS.
--- NOTE | 2018-12-15 13:00 | NUR ---
DR. COLÓN HERE TO SEE PATIENT. EPIDURAL DC'D AT BEDSIDE. WILL CONTINUE TO MONITOR.
--- NOTE | 2018-12-15 15:39 | OP ---
PATIENT NAME: GUILLERMO KOLB MEDICAL RECORD: [id number] :56 LOCATION:[facility] D.2303 ADMISSION DATE:12/14/18 SURGEON: KIERRA CARRINGTON MD DATE OF OPERATION: 12/14/2018 CO-SURGEON: Saurav Lucero MD and Kierra Carrington MD ANESTHESIA: General anesthesia with epidural by Dilip Quiroga CRNA. DIAGNOSIS: Scrotal abscess, possible colovesical fistula, pneumaturia. PROCEDURE: Cystoscopy, incision and drainage of scrotal abscess. SPECIMENS: Wound culture swabs. BLOOD LOSS: Minimal. CLINICAL HISTORY: This is a 58-year-old male, who complained of 1-2 weeks of right lower quadrant pain and progressively increasing scrotal pain. I saw him in the office this past week. He had an ultrasound showing bilateral hydroceles. He did have a UTI with Citrobacter also. He was complaining of pneumaturia, which led me to suspect that he may have a colovesical fistula. 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 He was put on Levaquin, which the Citrobacter was sensitive to. I also put him on Flagyl to cover anaerobic bacteria in case he did have a colovesical fistula. He was scheduled to have a CT scan of the abdomen and pelvis with IV contrast to check for fistula. Instead, today, he came to the Emergency Room because the scrotum was becoming increasingly more painful. CT scan was done by the emergency room staff. There is gas in the bladder. There is fluid in the rectum. There was a loop of bowel on the right side of the bladder adjacent to it which might possibly be the source of a colovesical fistula. Finally, there is gas in the scrotum, which is suggestive of gas gangrene. He gave consent for possible scrotal excision in case he had Fernando gangrene. My aim is to look in the bladder to see if I can see a fistula tract. Also, we will try to drain any abscess and possibly remove any necrotic tissue. I had him restarted on IV Levaquin and Flagyl. The patient wanted good postoperative pain control, so I had anesthesia provide him with an epidural. DESCRIPTION OF PROCEDURE: The patient was placed in the dorsal lithotomy position. This was after he had been given induction of general anesthesia. He was shaved, prepped and draped. Cystoscopy was done with a 17-Sao Tomean cystoscope and 30-degree lens. The urethra was normal. Prostatic urethra was nonobstructive. He has single ureteral orifices on each side in the bladder. I cannot find any obvious site of inflammation, which would suggest a fistula tract. There is gas just under the anterior wall of the bladder. I tried to suction all this gas out through the cystoscope and then reinflated the bladder to see if there was any possible tract there. I could not see an obvious tract. At this point, the cystoscope was removed. I inserted a 16-Sao Tomean Tony catheter into the bladder and put this to bag drainage. The balloon is inflated with 10 cc of sterile water. There was quite a lot of fluctuance and crepitus in the dependent portion of the scrotum. Rather than starting to excise the entire scrotal skin, we decided to first perform an incision and drainage. A 2-cm long incision was made by Dr. Lucero in the median rhaphe of the dependent portion of the scrotum at its most fluctuant portion. Immediately, a large OPERATIVE REPORT [id number] GUILLERMO KOLB quantity of pus was released under high pressure. We cultured this pus for aerobes and anaerobes. With manual dissection using the fingers, we could sweep through the entire space of the abscess. The incision was lengthened so that we could see internally. There is no obvious necrotic tissue. The hemiscrotal marquez are intact. Trying to palpate, we could not feel any obvious tract going into the rectum. The wound was irrigated out with hydrogen peroxide. We then packed it with Kerlix, infiltrated with hydrogen peroxide solution. A 4 x 4 gauze, ABD pad, and then mesh panties were given to the patient. The patient will be brought to the intensive care unit for monitoring. TRANSINT:[id number] Voice Confirmation ID: [id number] DOCUMENT ID: [id number] KIERRA CARRINGTON MD at 1539 CC: [id number] DICTATION DATE: 12/14/18 185 OIL DRILLING ENGINEER: 12/14/182227 ADM IN [place] [id number] [place] [id number]
--- NOTE | 2018-12-15 18:35 | NUR ---
TRANSFER TO ROOM 1201 VIA WHEELCHAIR. REPORT CALLED TO ELIJAH DE LOS SANTOS
--- NOTE | 2018-12-15 19:13 | NUR ---
PATIENT RESTING IN BED WITH NO S/S OF DISTRESS. PATIENT REQUESTED PAIN MEDS WHEN DUE. PATIENT C/O 5/10 PAIN AT THIS TIME. PATIENT DENIES OTHER NEEDS AT THIS TIME. BED IN LOWEST POSTIION AND CALL LIGHT WITHIN REACH. ENCOURAGED THE PATIENT TO CALL IF HE HAS NEEDS. WILL CONTINUE TO MONITOR.
[2018-12-16 01:00] VITALS: BP 109/67
[2018-12-16 05:00] VITALS: BP 113/62
--- NOTE | 2018-12-16 07:00 | NUR ---
PT RESTING IN BED, EYES OPEN. NO C/O PAIN. NO S/S OF ACUTE DISTRESS NOTED. PT ALERT AND ORIENTED. UP AD RENÉ. I&D TO SCROTUM, DRESSING INTACT. PT HAS LOZADA CATHETER. PT SCHEDULED FOR BARIUM ENEMA TODAY. IV TO RIGHT FOREARM, NS INFUSING @ 50ML/HR. SITE PATENT WITHOUT REDNESS OR SWELLING. PT DENIES ANYTHING FURTHER AT THIS TIME. CALL LIGHT IN REACH. WILL CONTINUE TO MONITOR.
[2018-12-16 07:23] LABS: BASOPHILS 0.3 % (0-2); EOSINOPHILS 3.2 % (0-7); HEMATOCRIT 35.5 % (42.0-54.0); HEMOGLOBIN 11.7 g/dL (13.5-17.5); IMMATURE GRANULOCYTES 0.5 % (0-5); LYMPHOCYTES 16.8 % (15-50); MCH 29.7 pg (26.0-34.0); MEAN PLATELET VOLUME 8.6 fL (7.4-10.4); MONOCYTES 13.6 % (2-11); NEUTROPHILS 65.6 % (40-80); PLATELET COUNT 357 10x3/uL (130-400); RBC 3.94 10x6/uL (4.20-6.10); RDW 12.9 % (11.5-14.5)
[2018-12-16 07:32] LABS: MCV 90.1 fL (80.0-100.0); WBC 11.5 10x3/uL (4.8-10.8)
[2018-12-16 07:41] LABS: ALKALINE PHOSPHATASE 59 U/L (46-116); ALT (SGPT) 17 U/L (10-68); BILIRUBIN - TOTAL 0.25 mg/dL (0.2-1.3); CALC OSMOLALITY 267 mosm/kg (275-300); CALCIUM 7.6 mg/dL (8.5-10.1); CARBON DIOXIDE 26.7 mmol/L (21.0-32.0); CHLORIDE - SERUM 101 mmol/L (98-107); CREATININE - SERUM 0.6 mg/dL (0.6-1.3); GLUCOSE 103 mg/dL (74-106); POTASSIUM - SERUM 3.8 mmol/L (3.5-5.1); PROTEIN - SERUM 6.2 g/dL (6.4-8.2); SODIUM 135 mmol/L (136-145); UREA NITROGEN 7 mg/dL (7-18); eGFR NON AFRICAN AMERICAN > 90 mL/min (90-120)
[2018-12-16 07:59] VITALS: BP 111/70
[2018-12-16 11:50] VITALS: BP 111/64
[2018-12-16 16:46] VITALS: BP 103/66
--- NOTE | 2018-12-16 18:41 | NUR ---
PT RESTING IN BED, VISITING WITH FAMILY. C/O PAIN, GAVE OXYCODONE FOR PAIN. NO S/S OF ACUTE DISTRESS NOTED. PT DENIES ANYTHING FURTHER AT THIS TIME. CALL LIGHT IN REACH. WILL CONTINUE TO MONITOR.
--- NOTE | 2018-12-16 19:45 | NUR ---
PATIENT RESTING IN BED WITH GUEST AT BEDSIDE. NO S/S OF DISTRESS. REQUESTED PAIN MEDS WHEN DUE. PATIENT DENIES OTHER NEEDS AT THIS TIME. BED IN LOWEST POSITION AND CALL LIGHT WITHIN REACH. ENCOURAGED THE PATIENT TO CALL IF HE HAS NEEDS. WILL CONTINUE TO MONITOR.
[2018-12-16 20:00] VITALS: BP 106/52
[2018-12-17] VITALS: BP 114/68
[2018-12-17 04:00] VITALS: BP 113/63
[2018-12-17 07:15] LABS: ALKALINE PHOSPHATASE 64 U/L (46-116); ALT (SGPT) 14 U/L (10-68); BILIRUBIN - TOTAL 0.44 mg/dL (0.2-1.3); CALC OSMOLALITY 268 mosm/kg (275-300); CALCIUM 7.7 mg/dL (8.5-10.1); CARBON DIOXIDE 25.9 mmol/L (21.0-32.0); CHLORIDE - SERUM 101 mmol/L (98-107); CREATININE - SERUM 0.6 mg/dL (0.6-1.3); GLUCOSE 94 mg/dL (74-106); POTASSIUM - SERUM 3.7 mmol/L (3.5-5.1); PROTEIN - SERUM 6.2 g/dL (6.4-8.2); SODIUM 136 mmol/L (136-145); UREA NITROGEN 3 mg/dL (7-18); eGFR NON AFRICAN AMERICAN > 90 mL/min (90-120)
[2018-12-17 07:16] LABS: BASOPHILS 0.4 % (0-2); EOSINOPHILS 3.4 % (0-7); HEMATOCRIT 35.1 % (42.0-54.0); HEMOGLOBIN 11.4 g/dL (13.5-17.5); IMMATURE GRANULOCYTES 0.6 % (0-5); LYMPHOCYTES 21.6 % (15-50); MCH 29.4 pg (26.0-34.0); MCHC 32.5 g/dL (31.0-37.0); MCV 90.5 fL (80.0-100.0); MEAN PLATELET VOLUME 9.3 fL (7.4-10.4); MONOCYTES 13.1 % (2-11); NEUTROPHILS 60.9 % (40-80); PLATELET COUNT 398 10x3/uL (130-400); RBC 3.88 10x6/uL (4.20-6.10); RDW 12.8 % (11.5-14.5)
[2018-12-17 09:27] VITALS: BP 118/75
--- NOTE | 2018-12-17 10:17 | MORECARE ---
CASE MANAGEMENT DISCHARGE SUMMARY PATIENT: GUILLERMO KOLB UNIT: [id number] ADM DATE: 12/14/18 AGE: 58 : 56 SEX: M ROOM/BED: D.1201 AUTHOR: MARKY ALVARES PHYSICIAN: REFERRING PHYSICIAN: BRENT MIRANDA MD DATE OF SERVICE: 12/17/18 Discharge Plan Patient Name: GUILLERMO KOLB Facility: [facility]:[place] : 1960 Planned Disposition: Home Health Service Anticipated Discharge Date: Discharge Date: Expected LOS: Initial Reviewer: [id number] Initial Review Date: 12/17/2018 Generated: 12/17/18 11:17 am Comments DCP- Discharge Planning Updated by [id number]: Mallory Joel on 12/17/18 9:[address] Patient Name: GUILLERMO KOLB Admission Status: ER Accout number: [id number] Admission Date: 12-14-2018 : 1960 Admission Diagnosis:INFLAMMATORY DISORDERS OF SCROTUM Attending: BRENT MIRANDA Current LOS: 3 Anticipated DC Date: Planned Disposition: Home Health Service Primary Insurance: [facility] PPO Discharge Planning Comments: CM MET WITH PATIENT ABOUT DC PLANNING/NEEDS. WILL NEED HH FOR DRESSING CHANGES. STACY SIGNED FOR [facility]. CM WILL FAX REFERRAL TO [facility]. PATIENT STATES POSSIBLE DC TODAY OR TOMORROW. Submarine Advisory Team Watch Officer: Mallory Joel DCPIA - Discharge Planning Initial Assessment Updated by [email or web address]: Mallory Joel on 12/17/18 10:14 am * Is the patient Alert and Oriented? Yes * PCP MARCIE * Pharmacy [facility] [address] * Preadmission Environment Home Alone * ADLs Independent * Equipment Oxygen * Community resources currently utilized None * Additional services required to return to the preadmission environment? Yes * Can the patient safely return to the preadmission environment? Yes * Has this patient been hospitalized within the prior 30 days at any hospital? No Patient Name: GUILLERMO KOLB Page [id number] at 1017 All edits/amendments must be made on the electronic document DICTATION DATE: 12/17/18 1016 BAR TACKER SEWING MACHINE: LUCIO 12/17/18 1016 RPT#: [id number] DC DATE: STATUS: ADM IN [facility] [address] [place] [address] END OF REPORT
--- NOTE | 2018-12-17 10:44 | MORECARE ---
CASE MANAGEMENT DISCHARGE SUMMARY PATIENT: GUILLERMO KOLB UNIT: [id number] ADM DATE: 12/14/18 AGE: 58 : 56 SEX: M ROOM/BED: D.1201 AUTHOR: GIORGIODOC PHYSICIAN: REFERRING PHYSICIAN: BRENT MIRANDA MD DATE OF SERVICE: 12/17/18 Discharge Plan Patient Name: GUILLERMO KOLB Facility: [facility]:[place] : 1960 Planned Disposition: Home Health Service Anticipated Discharge Date: Discharge Date: Expected LOS: Initial Reviewer: [id number] Initial Review Date: 12/17/2018 Generated: 12/17/18 11:44 am Comments DCP- Discharge Planning Updated by [email or web address]: Mallory Joel on 12/17/18 9:[address] Patient Name: GUILLERMO KOLB Admission Status: ER Accout number: [id number] Admission Date: 12-14-2018 : 1960 Admission Diagnosis:INFLAMMATORY DISORDERS OF SCROTUM Attending: BRENT MIRANDA Current LOS: 3 Anticipated DC Date: Planned Disposition: Home Health Service Primary Insurance: [facility] PPO Discharge Planning Comments: CM MET WITH PATIENT ABOUT DC PLANNING/NEEDS. WILL NEED HH FOR DRESSING CHANGES. STACY SIGNED FOR [facility]. CM WILL FAX REFERRAL TO [facility]. PATIENT STATES POSSIBLE DC TODAY OR TOMORROW. Escalator Operator: Mallory Joel DCPIA - Discharge Planning Initial Assessment Updated by [id number]: Mallory Joel on 12/17/18 10:14 am * Is the patient Alert and Oriented? Yes * PCP MARCIE * Pharmacy [facility] [address] * Preadmission Environment Home Alone * ADLs Independent * Equipment Oxygen * Community resources currently utilized None * Additional services required to return to the preadmission environment? Yes * Can the patient safely return to the preadmission environment? Yes * Has this patient been hospitalized within the prior 30 days at any hospital? No External Providers External Provider: [facility] Next Contact Date: Service Request Date: Service Type: Resolution: Reviewer: Comments: Coverage Notice Reviewer: [id number] - Mallory Joel Notice Issued Date-Time: 12/17/2018 10:40 Notice Type: Patient Choice Letter Notice Delivered To: Patient Relationship to Patient: Self Illusionist Name: Delivery Method: HAND - Hand Delivered Gaye Days: Prior Verbal Notification: Recipient Understood Notice: Yes Recipient Signature: Yes Med Rec Note Co-signed by Attending: Coverage Notice Comment: [facility], [facility] DOESN'T ACCEPT INSURANCE. FAXED REFERRAL TO [facility]. Last DP export: 12/17/18 9:17 am Patient Name: GUILLERMO KOLB Page [phone] at 1044 All edits/amendments must be made on the electronic document DICTATION DATE: 12/17/18 1043 PELLETIZER OPERATOR: LUCIO 12/17/18 1043 RPT#: [id number] DC DATE: STATUS: ADM IN [facility] [address] [place] [address] END OF REPORT
[2018-12-17 12:03] VITALS: BP 130/64; BP 136/68
--- NOTE | 2018-12-17 15:28 | NUR ---
LOZADA CATHTER D/C AT THIS TIME WITH TIP INTACT. INFORMED PT TO NOTIFY THIS NURSE WHEN HE IS ABLE TO VOIDE, ALSO INFORMED PT THAT DR. SCHILLING HAD TO PUT IN D/C ORDERES.
[2018-12-17] MEDS ORDERED: LEVAQUIN750 MG PO (16:05)
[2018-12-17] MEDS ORDERED: FLAGYL500 MG PO (16:15)
[2018-12-17] MEDS ORDERED: HYDROCODON-ACET15 ML PO (16:27)
--- NOTE | 2018-12-17 17:02 | NUR ---
PROVIDED VERBAL AND WRITTEN DISCHARGE TEACHING TO PT, WHO VERBALIZED UNDERSTANDING REGARDING TEACHING. D/C RT FA IV WITH CATHETER TIP INTACT. PRESCRIPTION FOR FLAGYL AND LEVAQUIN, AND NORCO GIVEN TO PT. PT VOIDED ONCE SINCE LOZADA CATHETER WAS D/C
--- NOTE | 2018-12-17 17:21 | MORECARE ---
CASE MANAGEMENT DISCHARGE SUMMARY PATIENT: GUILLERMO KOLB UNIT: [id number] ADM DATE: 12/14/18 AGE: 58 : 56 SEX: M ROOM/BED: D.1201 AUTHOR: MARKY ALVARES PHYSICIAN: REFERRING PHYSICIAN: BRENT MIRANDA MD DATE OF SERVICE: 12/17/18 Discharge Plan Patient Name: GUILLERMO KOLB Facility: [facility]:[place] : 1960 Planned Disposition: Home Health Service Anticipated Discharge Date: 12/17/18 Discharge Date: Expected LOS: 3 Initial Reviewer: [id number] Initial Review Date: 12/17/2018 Generated: 12/17/18 6:21 pm Comments DCP- Discharge Planning Updated by [email or web address]: Mallory Joel on 12/17/18 4:[address] Patient Name: GUILLERMO KOLB Encounter No: [id number] : 1960 Primary Insurance: [employer] [facility] PPO Anticipated DC Date: 12-17-2018 Planned Disposition: Home Health Service External Planned Provider: : DCP follow-up note: Patient and family in agreement with discharge plan. No changes to plan. [facility] will contact patient and see him tomorrow for wound care. Case management will follow and assist as needed. Mallory Joel DCP- Discharge Planning Updated by [email or web address]: Mallory Joel on 12/17/18 9:[address] Patient Name: GUILLERMO KOLB Admission Status: ER Accout number: [id number] Admission Date: 12-14-2018 : 1960 Admission Diagnosis:INFLAMMATORY DISORDERS OF SCROTUM Attending: BRENT MIRANDA Current LOS: 3 Anticipated DC Date: Planned Disposition: Home Health Service Primary Insurance: [employer] [facility] PPO Discharge Planning Comments: CM MET WITH PATIENT ABOUT DC PLANNING/NEEDS. WILL NEED HH FOR DRESSING CHANGES. STACY SIGNED FOR [facility]. CM WILL FAX REFERRAL TO [facility]. PATIENT STATES POSSIBLE DC TODAY OR TOMORROW. Medicaid Nurse: Mallory Joel DCPIA - Discharge Planning Initial Assessment Updated by [email or web address]: Mallory Joel on 12/17/18 10:14 am * Is the patient Alert and Oriented? Yes * PCP MARCIE * Pharmacy [facility] [address] * Preadmission Environment Home Alone * ADLs Independent * Equipment Oxygen * Community resources currently utilized None * Additional services required to return to the preadmission environment? Yes * Can the patient safely return to the preadmission environment? Yes * Has this patient been hospitalized within the prior 30 days at any hospital? No Coverage Notice Reviewer: [id number] - Mallory Joel Notice Issued Date-Time: 12/17/2018 10:40 Notice Type: Patient Choice Letter Notice Delivered To: Patient Relationship to Patient: Self Ammunition Components Inspector Name: Delivery Method: HAND - Hand Delivered Gaye Days: Prior Verbal Notification: Recipient Understood Notice: Yes Recipient Signature: Yes Med Rec Note Co-signed by Attending: Coverage Notice Comment: [facility], [facility] DOESN'T ACCEPT INSURANCE. FAXED REFERRAL TO [facility]. Last DP export: 12/17/18 9:44 am Patient Name: GUILLERMO KOLB Page [phone] at 1721 All edits/amendments must be made on the electronic document DICTATION DATE: 12/17/181719 OPEN SOAPER TENDER: LUCIO 12/17/181719 RPT#: [id number] DC DATE: STATUS: ADM IN [facility] [address] [place] [address] END OF REPORT
--- NOTE | 2018-12-17 17:31 | NUR ---
PT LEFT UNIT VIA AMBULATORY WITH ALL BELONGINGS. ACCOMPANIED BY FEMALE FRIEND, NAD NOTED.
--- NOTE | 2018-12-18 08:02 | MORECARE ---
CASE MANAGEMENT DISCHARGE SUMMARY PATIENT: GUILLERMO KOLB UNIT: [id number] ADM DATE: 12/14/18 AGE: 58 : 56 SEX: M ROOM/BED: D.1201 AUTHOR: MARKY ALVARES PHYSICIAN: REFERRING PHYSICIAN: BRENT MIRANDA MD DATE OF SERVICE: 12/18/18 Discharge Plan Patient Name: GUILLERMO KOLB Facility: [facility]:[place] : 1960 Planned Disposition: Home Health Service Anticipated Discharge Date: 12/17/18 Discharge Date: 12/17/2018 Expected LOS: 3 Initial Reviewer: [email or web address] Initial Review Date: 12/17/2018 Generated: 12/18/18 9:02 am Comments DCP- Discharge Planning Updated by [email or web address]: Mallory Joel on 12/17/18 4:[address] Patient Name: GUILLERMO KOLB Encounter No: [id number] : 1960 Primary Insurance: [employer] PPO Anticipated DC Date: 12-17-2018 Planned Disposition: Home Health Service External Planned Provider: : DCP follow-up note: Patient and family in agreement with discharge plan. No changes to plan. [facility] will contact patient and see him tomorrow for wound care. Case management will follow and assist as needed. Mallory Joel DCP- Discharge Planning Updated by [email or web address]: Mallory Joel on 12/17/18 9:[address] Patient Name: GUILLERMO KOLB Admission Status: ER Accout number: [id number] Admission Date: 12-14-2018 : 1960 Admission Diagnosis:INFLAMMATORY DISORDERS OF SCROTUM Attending: BRENT MIRANDA Current LOS: 3 Anticipated DC Date: Planned Disposition: Home Health Service Primary Insurance: [employer] PPO Discharge Planning Comments: CM MET WITH PATIENT ABOUT DC PLANNING/NEEDS. WILL NEED HH FOR DRESSING CHANGES. STACY SIGNED FOR [facility]. CM WILL FAX REFERRAL TO [facility]. PATIENT STATES POSSIBLE DC TODAY OR TOMORROW. Plush Cutter: Mallory Joel DCPIA - Discharge Planning Initial Assessment Updated by [email or web address]: Mallory Joel on 12/17/18 10:14 am * Is the patient Alert and Oriented? Yes * PCP MARCIE * Pharmacy [facility] [address] * Preadmission Environment Home Alone * ADLs Independent * Equipment Oxygen * Community resources currently utilized None * Additional services required to return to the preadmission environment? Yes * Can the patient safely return to the preadmission environment? Yes * Has this patient been hospitalized within the prior 30 days at any hospital? No Coverage Notice Reviewer: [id number] Jennifer Joel Notice Issued Date-Time: 12/17/2018 10:40 Notice Type: Patient Choice Letter Notice Delivered To: Patient Relationship to Patient: Self Cell Changer Name: Delivery Method: HAND - Hand Delivered Gaye Days: Prior Verbal Notification: Recipient Understood Notice: Yes Recipient Signature: Yes Med Rec Note Co-signed by Attending: Coverage Notice Comment: [facility], [facility] DOESN'T ACCEPT INSURANCE. FAXED REFERRAL TO [facility]. Last DP export: 12/17/18 4:21 pm Patient Name: GUILLERMO KOLB Page [phone] at 0802 All edits/amendments must be made on the electronic document DICTATION DATE: 12/18/18 0802 COTTON WEIGHER OPERATOR: LUCIO 12/18/18 0802 RPT#: [id number] DC DATE:12/17/18 STATUS: DIS IN [facility] [address] [place] [address] END OF REPORT
== END 2018-12-17 17:32 | disposition home health service (06) | DRG 728 ==
LOC: D.ER 12:05 → D.ICU 16:39 → D.M3 16:39 → D.EDHOLD 16:39 → D.MS 17:19 → D.EDHOLD 17:56 → D.ICU 18:52 → D.M3 12-15 19:02
PROVIDERS: Family Medicine; Urology; ADMIT Internal Medicine Nephrology; ATTEND Internal Medicine Nephrology
PROC: 0V953ZZ Drainage of Scrotum, Percutaneous Approach (ICD-10-PCS; principal; 2018-12-14 17:19)
PROC: 0TJB8ZZ Inspection of Bladder, Via Natural or Artificial Opening Endoscopic (ICD-10-PCS; 2018-12-14 17:19)
DX: N49.2 Inflammatory disorders of scrotum (principal); N32.1 Vesicointestinal fistula; F17.213 Nicotine dependence, cigarettes, with withdrawal; J96.11 Chronic respiratory failure with hypoxia; N39.0 Urinary tract infection, site not specified; N49.3 Fournier gangrene; J44.9 Chronic obstructive pulmonary disease, unspecified; F10.10 Alcohol abuse, uncomplicated; I95.9 Hypotension, unspecified; R00.1 Bradycardia, unspecified; K57.90 Diverticulosis of intestine, part unspecified, without perforation or abscess without bleeding; N43.3 Hydrocele, unspecified

== ENCOUNTER → 2019-05-22 13:41 | Outpatient (CLI) | payer OTHER ==
[2018-12-15 09:29] VITALS: BMI 21.4
[~2019-05-22 13:41] MED LIST changes: +ALBUTEROL SULF8.5 GM INH; +FLAGYL500 MG PO; +HYDROCODON-ACE1 EA10 PO; +HYDROCODON-ACET15 ML PO; +RESCUE INHALER; +TRELEGY ELLIPT1 EACH INH
== END | disposition home or self-care (01) ==
LOC: D.RT 13:41
PROVIDERS: ATTEND Internal Medicine Pulmonary Disease
DX: J44.9 Chronic obstructive pulmonary disease, unspecified (principal)

== ENCOUNTER 2019-06-01 10:43 | Emergency (ER) | payer OTHER ==
[~2019-06-01] VITALS: Ht 188 cm; Wt 75.0 kg
[~2019-06-01 10:43] MED LIST changes: -ALBUTEROL SULF8.5 GM INH; -HYDROCODON-ACE1 EA10 PO; -RESCUE INHALER; -TRELEGY ELLIPT1 EACH INH
[2019-06-01 10:48] VITALS: Ht 188 cm; Wt 75.0 kg
[2019-06-01] MEDS ORDERED: RESCUE INHALER (10:52)
[2019-06-01] MEDS ORDERED: TRELEGY ELLIPT1 EACH INH (10:52)
[2019-06-01 11:52] LABS: APPEARANCE HAZY (CLEAR); COLOR YELLOW (YELLOW)
[2019-06-01 11:53] LABS: BACTERIA FEW /hpf (NONE SEEN); BILIRUBIN NEGATIVE (NEGATIVE); EPITHELIAL CELLS 0-5 /hpf (0-5); GLUCOSE NEGATIVE (NEGATIVE); KETONE NEGATIVE (NEGATIVE); MUCUS <1+ /lpf (NONE SEEN); NITRITE NEGATIVE (NEGATIVE); PROTEIN NEGATIVE (NEGATIVE)
[2019-06-01 12:28] LABS: ALBUMIN 2.9 g/dL (3.4-5.0); ALKALINE PHOSPHATASE 89 U/L (46-116); ALT (SGPT) 28 U/L (10-68); BILIRUBIN - TOTAL 0.41 mg/dL (0.2-1.3); CALC OSMOLALITY 270 mosm/kg (275-300); CALCIUM 8.5 mg/dL (8.5-10.1); CARBON DIOXIDE 27.6 mmol/L (21.0-32.0); CHLORIDE - SERUM 101 mmol/L (98-107); CREATININE - SERUM 0.7 mg/dL (0.6-1.3); GLUCOSE 102 mg/dL (74-106); POTASSIUM - SERUM 4.3 mmol/L (3.5-5.1); PROTEIN - SERUM 6.9 g/dL (6.4-8.2); SODIUM 136 mmol/L (136-145); UREA NITROGEN 10 mg/dL (7-18); eGFR NON AFRICAN AMERICAN > 90 mL/min (90-120)
[2019-06-01 12:32] LABS: HEMATOCRIT 40.4 % (42.0-54.0); HEMOGLOBIN 13.9 g/dL (13.5-17.5); MCH 31.6 pg (26.0-34.0); MCHC 34.4 g/dL (31.0-37.0); MCV 91.8 fL (80.0-100.0); MEAN PLATELET VOLUME 8.6 fL (7.4-10.4); PLATELET COUNT 340 10x3/uL (130-400); RDW 12.7 % (11.5-14.5); WBC 21.9 10x3/uL (4.8-10.8)
[2019-06-01 14:22] LABS: EOSINOPHILS 1 % (0-7); LYMPHOCYTES 22 % (15-50); MONOCYTES 13 % (2-11); NEUTROPHILS 61 % (40-80); PLATELET ESTIMATE NORMAL
[2019-06-01 17:04] VITALS: BP 132/72
== END 2019-06-01 17:09 | disposition other institution (70) ==
LOC: D.ER 10:43
PROVIDERS: Emergency Medicine
DX: N49.2 Inflammatory disorders of scrotum (principal); N32.2 Vesical fistula, not elsewhere classified

== ENCOUNTER → 2019-06-04 14:25 | Outpatient (CLI) | payer OTHER ==
[2019-06-01 10:48] VITALS: BMI 21.2
[~2019-06-04 14:25] MED LIST changes: +ALBUTEROL SULF8.5 GM INH; +HYDROCODON-ACE1 EA10 PO; +RESCUE INHALER; +TRELEGY ELLIPT1 EACH INH
== END | disposition home or self-care (01) ==
LOC: D.CT 14:25
PROVIDERS: ATTEND Internal Medicine Gastroenterology
DX: R39.89 Other symptoms and signs involving the genitourinary system (principal)

== ENCOUNTER 2019-07-07 10:02 | Inpatient (IN) | payer OTHER ==
[~2019-07-07] VITALS: Ht 157.5 cm; Wt 77.1 kg
--- NOTE | ~2019-07-07 | DS ---
PATIENT:GUILLERMO KOLB :56 MEDICAL RECORD: [id number] DISCHARGE SUMMARY ADMISSION DATE: 07/09/19 DISCHARGE DATE: 07/13/19 DATE OF ADMISSION: 07/09/2019. DATE OF DISCHARGE: 07/13/2019. ADMISSION DIAGNOSES: 1. Colovesical fistula. 2. Colorectal fistula. 3. History of diverticulitis. 4. Chronic obstructive pulmonary disease. 5. Tobacco dependent syndrome. DISCHARGE DIAGNOSES: 1. Colovesical fistula. 2. Colorectal fistula. 3. History of diverticulitis. 4. Chronic obstructive pulmonary disease. 5. Tobacco dependent syndrome. PROCEDURE: Hand-assisted laparoscopic low anterior resection with diverting loop ileostomy. CONSULTATIONS: None. REPORT OF HOSPITALIZATION: The patient was admitted to the hospital after a hand-assisted laparoscopic low anterior resection with diverting ileostomy for diverticular disease causing colorectal fistula and a colovesical fistula. Postoperatively, the patient did well. He had a normal postoperative course with development of ostomy output on postop day #2. At that point, we start the patient on a clear liquid diet. We were able to advance his diet over the next couple of days. On the day of discharge, he was tolerating a regular diet and having good ostomy output. His incisions were healing well with no signs of infection. He had a Tony in place, which we plan to leave in position for 1 week from the time of surgery secondary to the colovesical fistula. On the day of discharge, he was tolerating regular diet, ambulating and having good ostomy output. DISCHARGE INSTRUCTIONS: Return to clinic or call with any questions or concerns, fevers, chills, nausea, vomiting, or worsening abdominal pain. ACTIVITIES: No heavy lifting or straining for 6 weeks postoperatively. FOLLOWUP: In clinic with me in 2 weeks. DISCHARGE MEDICATIONS: Resume home meds with the inclusion of [place] 10. TRANSINT:[id number] Voice Confirmation ID: [id number] DOCUMENT ID: [id number] DISCHARGE SUMMARY REPORT [id number] GUILLERMO KOLB CHRISTIAN MD CC: [id number] DICTATION DATE: 09/15/19 1343 AGENT SPA DESK: 09/16/19 0017 DIS IN 07/13/19 [place] [address]
[~2019-07-07 10:02] MED LIST changes: -ALBUTEROL SULF8.5 GM INH; -HYDROCODON-ACE1 EA10 PO
[2019-07-07] MEDS ORDERED: ALBUTEROL SULF8.5 GM INH (15:21)
[2019-07-07 16:12] LABS: BASOPHILS 0.3 % (0-2); HEMATOCRIT 44.2 % (42.0-54.0); HEMOGLOBIN 15.5 g/dL (13.5-17.5); IMMATURE GRANULOCYTES 0.2 % (0-5); LYMPHOCYTES 19.8 % (15-50); MCH 32.4 pg (26.0-34.0); MCHC 35.1 g/dL (31.0-37.0); MCV 92.5 fL (80.0-100.0); MEAN PLATELET VOLUME 9.1 fL (7.4-10.4); MONOCYTES 9.5 % (2-11); NEUTROPHILS 68.2 % (40-80); PLATELET COUNT 307 10x3/uL (130-400); RBC 4.78 10x6/uL (4.20-6.10); RDW 13.1 % (11.5-14.5); WBC 13.1 10x3/uL (4.8-10.8)
[2019-07-07 16:20] LABS: CALC OSMOLALITY 278 mosm/kg (275-300); CALCIUM 8.6 mg/dL (8.5-10.1); CARBON DIOXIDE 33.1 mmol/L (21.0-32.0); CHLORIDE - SERUM 102 mmol/L (98-107); CREATININE - SERUM 0.7 mg/dL (0.6-1.3); GLUCOSE 118 mg/dL (74-106); POTASSIUM - SERUM 4.7 mmol/L (3.5-5.1); SODIUM 140 mmol/L (136-145); UREA NITROGEN 11 mg/dL (7-18); eGFR NON AFRICAN AMERICAN > 90 mL/min (90-120)
[2019-07-09] VITALS (8 sets, daily range): BP systolic 119–162; BP diastolic 76–87; BMI 31.1
--- NOTE | 2019-07-09 13:15 | NUR ---
SURGERY PERFORMED- LOW ANTERIOR RESECTION
--- NOTE | 2019-07-09 13:44 | NUR ---
MAYRA DRAIN WITH 85CC OF RED FLUID @1345
--- NOTE | 2019-07-09 14:02 | NUR ---
ANOTHER 50CC REMOVED FROM MAYRA DRAIN @0664
--- NOTE | 2019-07-09 15:16 | NUR ---
PATIENT RECIEVED FROM RECOVERY POST HALS COLECTOMY. DRESSING TO MID LOWER ABD C/D/I, MAYRA TO LEFT LOWER QUADRANT, ILIOSTOMY TO RIGHT LOWER QUADRANT WITH OSTOMY APPLIANCE IN PLACE. ORIENTED PATIENT TO ROOM, AND BUSINESS CENTER REPRESENTATIVE INITIATED. CL IN REACH
--- NOTE | 2019-07-09 19:00 | NUR ---
BEDSIDE REPORT RECEIVED AND CARE OF PT ASSUMED. PT LYING IN MID MOLINA'S POSITION WATCHING TV. IV TO LEFT FA PATENT WITH NS INFUSING AT 125 ML/HR. CARTON MACHINE OPERATOR IN USE WITH DILAUDID SET AT 0.2/10/4 FOR PAIN CONTROL. MAYRA DRAIN WELL COMPRESSED WITH BLOODY DRAINAGE IN BULB. ILEOSTOMY STOMA RED AND MOIST, WITH BLOODY DRAINAGE IN COLLECTION BAG. ABDOMINAL INCISION WELL APPROXIMATED. SCD'S IN PLACE ON BLE. WILL MONITOR FOR NEEDS.
--- NOTE | 2019-07-09 19:20 | NUR ---
INCINTIVE INSPIROMETER BROUGHT TO BEDSIDE AND TEACHING PERFORMED. PT ABLE TO DEMONSTRATE USE.
--- NOTE | 2019-07-09 20:18 | NUR ---
HS MEDICATIONS GIVEN. GAVE FRESH CUP OF ICE CHIPS.
--- NOTE | 2019-07-09 21:45 | NUR ---
NEW VIAL OF DILAUDID PLACED IN OVEN OPERATOR.
[2019-07-10 00:30] VITALS: BP 119/70
[2019-07-10 05:04] VITALS: BP 127/53
[2019-07-10 06:29] LABS: BASOPHILS 0.2 % (0-2); EOSINOPHILS 0.4 % (0-7); HEMATOCRIT 39.4 % (42.0-54.0); HEMOGLOBIN 12.7 g/dL (13.5-17.5); IMMATURE GRANULOCYTES 0.4 % (0-5); LYMPHOCYTES 10.5 % (15-50); MCH 31.1 pg (26.0-34.0); MCHC 32.2 g/dL (31.0-37.0); MCV 96.3 fL (80.0-100.0); MEAN PLATELET VOLUME 9.5 fL (7.4-10.4); MONOCYTES 9.5 % (2-11); PLATELET COUNT 320 10x3/uL (130-400); RBC 4.09 10x6/uL (4.20-6.10); RDW 13.2 % (11.5-14.5); WBC 16.3 10x3/uL (4.8-10.8)
[2019-07-10 06:46] LABS: CALC OSMOLALITY 281 mosm/kg (275-300); CALCIUM 7.4 mg/dL (8.5-10.1); CARBON DIOXIDE 26.5 mmol/L (21.0-32.0); CHLORIDE - SERUM 106 mmol/L (98-107); CREATININE - SERUM 0.7 mg/dL (0.6-1.3); GLUCOSE 93 mg/dL (74-106); POTASSIUM - SERUM 4.3 mmol/L (3.5-5.1); SODIUM 142 mmol/L (136-145); UREA NITROGEN 10 mg/dL (7-18); eGFR NON AFRICAN AMERICAN > 90 mL/min (90-120)
--- NOTE | 2019-07-10 08:00 | NUR ---
ASSESSMENT PER FLOW SHEET. PT IS WITHOUT DISTRESS.COMPLAINS OF PAIN. WIRING INSPECTOR USE INSTRUCTED. MONITOR FOR NEEDS.
[2019-07-10 08:06] VITALS: BP 108/61
--- NOTE | 2019-07-10 11:37 | OP ---
PATIENT NAME: GUILLERMO KOLB MEDICAL RECORD: [id number] :56 LOCATION:D.MS [id number] ADMISSION DATE:07/09/19 SURGEON: SAURAV MENDOZA MD DATE OF OPERATION: 07/09/2019 PREOPERATIVE DIAGNOSES: 1. Colovesical fistula. 2. Colorectal fistula. 3. History of diverticulitis. 4. Tobacco dependence syndrome. 5. Chronic obstructive pulmonary disease. POSTOPERATIVE DIAGNOSES: 1. Colovesical fistula. 2. Colorectal fistula. 3. History of diverticulitis. 4. Tobacco dependence syndrome. 5. Chronic obstructive pulmonary disease. PROCEDURE: Hand-assisted laparoscopic LAR with diverting loop ileostomy. SURGEON: Saurav Mendoza MD REPORT OF PROCEDURE: The patient's abdomen was prepped and draped in sterile fashion. A skin incision was made in the suprapubic region in the midline and electrocautery was used to dissect through the subcutaneous tissues and fascia and we entered the abdominal cavity. A Gelport was inserted with a 5-mm trocar within it. We insufflated the abdomen and placed a 5-mm trocar in the right lateral abdomen and a 12-mm trocar in the tissue just anterior to the anterior superior iliac crest on the right side. The patient had a dense amount of adhesions present in the pelvis and the distal sigmoid colon and proximal rectum were very firm and indurated. We never encountered any purulent material or no abscess pockets. A tedious dissection was performed of the tissues off of the surrounding structures in the pelvis. Most of the adherent structures were present on the left side of the patient's bladder and in the left pelvic wall. We used electrocautery and blunt dissection to take down these adhesions and eventually we were able to get past the most inflamed area of tissue, which guide us to the lower third of the rectum. We eventually transected the mid sigmoid colon using a 45 blue load Endo-JERO stapler and took down the mesentery with either fires of the 45 white load Endo GI stapler or a sequential clamp and tie technique with 3-0 silks. Once we had this freed up, then we mobilized the surrounding tissues and the pelvis and we were able to fire a 30 blue load TA stapler across the distal aspect of the rectum. Upon doing this, there was still a small opening present in the tissues and this was oversewn with a 3-0 Vicryl. We inspected the pelvis and saw no evidence of any bleeding. There was some redundant tissue present, which was removed. I could see the left ureter and it appeared to be uninjured. I did not visualize the right ureter as we did not have to go far into the right side of the pelvis. We then mobilized the left side of the colon and splenic flexure using electrocautery. Once we did this, we were able to more easily pass the colon into the patient's pelvis and near the rectum. A 2-0 Prolene was used to make a pursestring on the sigmoid colon and a 29 EEA anvil was inserted. The pursestring was tied down tightly around this and we removed some of the fatty tissue, which was present all over the bowel. We then performed an end-to-end anastomosis under direct visualization with the 29 EEA stapler of the sigmoid colon to the distal rectum. OPERATIVE REPORT [id number] GUILLERMO KOLB We had good approximation of the tissue and 2 complete rings of tissue present in the stapler. We checked the staple line under water by instilling air into the rectum and there was no sign of any leakage present. Again, I did not see any evidence of any active bleeding. We inserted a 15-Stateless Adebayo drain in the left lower quadrant and placed it into the pelvis. This was sutured into place with a 3-0 Prolene. I then made an opening in the patient's right lower quadrant in a circular fashion and went through the subcutaneous tissues with a cruciate incision. We opened up the anterior fascia overlying the rectus muscle and these muscle fibers longitudinally. We then opened up the posterior fascial layer and eviscerated a loop of distal small bowel through this wound. An opening was made in the mesentery and a #15 red rubber catheter was inserted. We then closed the fascia in the midline using running #1 loop PDS times 2. The wound was irrigated out with normal saline and the skin incisions were all closed with gage. We then matured the ostomy with multiple interrupted 4-0 Vicryls with the ostomy being matured in a brooking fashion. The red rubber catheter was then tied together in a loop over top of the small bowel and used as a bridge. We then placed an ostomy bag over the ostomy and applied clean dressings to the wounds. COMPLICATIONS: None. CONDITION: Stable. ANESTHESIA: General endotracheal. BLOOD LOSS: 200 mL. TRANSINT:[id number] Voice Confirmation ID: [id number] DOCUMENT ID: [id number] SAURAV MENDOZA MD at 1137 CC: SACHA BAUTISTA MD, ESDRAS JACK MD and KIERRA CARRINGTON [id number] DICTATION DATE: 07/09/19 1304 ASSEMBLER ENGINE: 07/09/19 1322 ADM IN [place] [address] [place] [address]
--- NOTE | 2019-07-10 11:59 | NUR ---
AMBULATED PATIENT AROUND UNIT AND BACK TO ROOM. PT TOLERATED WELL. HAS BEEN OUT OF BED IN CHAIR MOST OF DAY. DENIES NEEDS.MONITOR
[2019-07-10 12:56] VITALS: BP 113/68
--- NOTE | 2019-07-10 13:00 | NUR ---
BACK UP TO CHAIR
[2019-07-10 13:43] VITALS: Ht 157.5 cm; Wt 77.1 kg
[2019-07-10 17:07] VITALS: BP 95/65
--- NOTE | 2019-07-10 19:00 | NUR ---
BEDSIDE REPORT RECEIVED AND CARE OF PT ASSUMED. PT LYING IN HIGH MOLINA'S POSITION WATCHING TV. IV TO LEFT FA PATENT WITH NS INFUSING AT 125 ML/HR, AND COMPENSATION SUPERVISOR W/ DILAUDID IN USE FOR PAIN CONTROL. MAYRA DRAIN WELL COMPRESSED WITH SMALL AMOUNT OF BLOODY DRAINAGE. ILEOSTOMY BAG WITH BLOODY / SEROUS DRAINAGE...STOMA RED AND MOIST. LOZADA CATHETER DRAINING TO GRAVITY WITH YELLOW URINE IN COLLECTION BAG. WILL MONITOR FOR NEEDS.
--- NOTE | 2019-07-10 19:20 | NUR ---
HAS AMBULATED IN HALLS 3 TIMES TODAY. HE HAS SET IN CHAIR FOR HOURS. STATES HE WANTS FOOD AND DRINKS.PAIN CONTROLLED WITH TORADOL AND MARKET INTELLIGENCE CONSULTANT.CONT PLAN OF CARE
[2019-07-10 20:00] VITALS: BP 118/466
--- NOTE | 2019-07-10 20:06 | NUR ---
HS MEDICATIONS GIVEN. WILL CONTINUE TO MONITOR FOR NEEDS.
--- NOTE | 2019-07-10 23:21 | NUR ---
PT RESTING IN MID MOLINA'S POSITION WITH EYES CLOSED. WILL CONTINUE TO MONITOR FOR NEEDS.
[2019-07-11] VITALS: BP 143/66
--- NOTE | 2019-07-11 02:53 | NUR ---
ILEOSTOMY BAG FULL OF GREENISH LIQUID AND LEAKING. CHANGED OUT APPLIANCE. CHANGED ALL LINENS AND GOWN. EMPTIED 800 ML FROM BAG.
[2019-07-11 04:00] VITALS: BP 109/69
[2019-07-11 06:06] LABS: BASOPHILS 0.1 % (0-2); HEMOGLOBIN 10.4 g/dL (13.5-17.5); IMMATURE GRANULOCYTES 0.3 % (0-5); LYMPHOCYTES 8.9 % (15-50); MCH 30.7 pg (26.0-34.0); MCHC 31.5 g/dL (31.0-37.0); MCV 97.3 fL (80.0-100.0); MEAN PLATELET VOLUME 9.9 fL (7.4-10.4); MONOCYTES 10.3 % (2-11); NEUTROPHILS 76.4 % (40-80); PLATELET COUNT 289 10x3/uL (130-400); RBC 3.39 10x6/uL (4.20-6.10); RDW 13.1 % (11.5-14.5); WBC 14.8 10x3/uL (4.8-10.8)
[2019-07-11 06:26] LABS: CALC OSMOLALITY 275 mosm/kg (275-300); CALCIUM 7.8 mg/dL (8.5-10.1); CARBON DIOXIDE 23.4 mmol/L (21.0-32.0); CHLORIDE - SERUM 105 mmol/L (98-107); GLUCOSE 86 mg/dL (74-106); SODIUM 139 mmol/L (136-145); UREA NITROGEN 9 mg/dL (7-18)
[2019-07-11 06:27] LABS: CREATININE - SERUM 0.5 mg/dL (0.6-1.3); POTASSIUM - SERUM 3.6 mmol/L (3.5-5.1); eGFR NON AFRICAN AMERICAN > 90 mL/min (90-120)
[2019-07-11 08:46] VITALS: BP 101/59
--- NOTE | 2019-07-11 09:34 | NUR ---
ALERT AND ORIENTED X4. COLOSTOMY INTACT TO RT. ABDOMEN. MAYRA DRAIN X1 WITH SEROUS DRAINAGE NOTED. SCD'S INTACT. LOZADA CATH INTACT. BOWEL SOUNDS HYPOACTIVE W/O FLATULANCE. HADOOP ADMINISTRATOR DILAUDID AND TORDOL GIVEN FOR PAIN MANAGEMENT AND EFFECTIVE. IV TO LEFT FOREARM WITH NO S/S OF INFECTION/INFILTRATION. ENCOURAGED TO USE CALL LIGHT FOR ASSIST.
[2019-07-11 13:54] VITALS: BP 100/58
[2019-07-11 16:47] VITALS: BP 133/74
--- NOTE | 2019-07-11 19:00 | NUR ---
BEDSIDE REPORT RECEIVED AND CARE OF PT ASSUMED. PT LYING IN HIGH MOLINA'S POSITION VISITING WITH FRIENDS. IV TO LEFT FA PATENT WITH NS INFUSING AT 125 ML/HR. ILEOSTOMY RED AND MOIST WITH SMALL AMOUNT OF GREENISH LIQUID IN BAG. MAYRA DRAIN WITH RED DRAINAGE IN COMPRESSED BULB. LOZADA CATHETER DRAINING TO GRAVITY WITH YELLOW URINE IN COLLECTION BAG. WILL MONITOR FOR NEEDS.
[2019-07-11 19:46] VITALS: BP 121/76
--- NOTE | 2019-07-11 20:33 | NUR ---
HS MEDICATIONS GIVEN. WILL MONITOR FOR NEEDS.
--- NOTE | 2019-07-11 21:45 | NUR ---
PT AMBULATING AROUND HALLWAYS AT THIS TIME.
[2019-07-12] VITALS: BP 106/67
--- NOTE | 2019-07-12 02:00 | NUR ---
PT AMBULATING IN THE HALLWAY AT THIS TIME.
[2019-07-12 04:00] VITALS: BP 107/61
--- NOTE | 2019-07-12 05:28 | NUR ---
ILEOSTOMY APPLIANCE LEAKING. REPLACED WITH 4 INCH APPLIANCE AFTER CLEANING AROUND STOMA. DRESSINGS ON RIGHT INGUINAL AREA AND LOWER ABDOMEN SOILED...REPLACED WITH NEW BANDAGES AFTER CLEANING AROUND INCISIONS...WELL APPROXIMATED WITH AMADA. CHANGED LARGE BANDAIDE SURROUNDING MAYRA DRAIN.
[2019-07-12 06:19] LABS: BASOPHILS 0.2 % (0-2); EOSINOPHILS 6.6 % (0-7); HEMATOCRIT 31.5 % (42.0-54.0); HEMOGLOBIN 10.3 g/dL (13.5-17.5); IMMATURE GRANULOCYTES 0.4 % (0-5); LYMPHOCYTES 13.7 % (15-50); MCH 31.1 pg (26.0-34.0); MCHC 32.7 g/dL (31.0-37.0); MEAN PLATELET VOLUME 9.3 fL (7.4-10.4); NEUTROPHILS 68.1 % (40-80); PLATELET COUNT 312 10x3/uL (130-400); RBC 3.31 10x6/uL (4.20-6.10); RDW 12.8 % (11.5-14.5)
[2019-07-12 06:20] LABS: MCV 95.2 fL (80.0-100.0)
[2019-07-12 06:34] LABS: CALC OSMOLALITY 272 mosm/kg (275-300); CALCIUM 7.6 mg/dL (8.5-10.1); CARBON DIOXIDE 26.2 mmol/L (21.0-32.0); CHLORIDE - SERUM 104 mmol/L (98-107); CREATININE - SERUM 0.5 mg/dL (0.6-1.3); GLUCOSE 103 mg/dL (74-106); POTASSIUM - SERUM 3.8 mmol/L (3.5-5.1); SODIUM 138 mmol/L (136-145); eGFR NON AFRICAN AMERICAN > 90 mL/min (90-120)
[2019-07-12 06:36] LABS: UREA NITROGEN 4 mg/dL (7-18)
--- NOTE | 2019-07-12 09:19 | NUR ---
ALERT AND ORIENTED X3. COLOSTOMY INTACT WITH DARK DRAINAGE NOTED. MAYRA X1 WITH SEROUS SANGUNOUS DRAINAGE NOTED. DILAUDID RESIDENT CARE MANAGER RN AND IVF AT PRESCRIBED RATE WITH TORDOL GIVEN FOR ASSISTANCE WITH PAIN MANAGEMENT. LOZADA CATH INTACT. ENCOURAGED TO USE CALL LIGHT FOR ASSSIT.
[2019-07-12 09:36] VITALS: BP 111/60
[2019-07-12 12:34] VITALS: BP 117/47
[2019-07-12 16:47] VITALS: BP 139/75
--- NOTE | 2019-07-12 19:00 | NUR ---
BEDSIDE REPORT RECEIVED AND CARE OF PT ASSUMED. PT LYING IN LOW MOLINA'S POSITION WITH EYES CLOSED. MAYRA DRAIN COMPRESSED WITH SEROUS DRAINAGE IN BULB. IV TO LEFT FA SALINE LOCKED. SMALL AMOUNT OF DARD GREEN DRAINAGE IN ILEOSTOMY BAG. LOZADA CATHETER DRAINING TO GRAVITY WITH YELLOW URINE IN COLLECTION BAG. WILL MONITOR FOR NEEDS.
--- NOTE | 2019-07-12 20:17 | NUR ---
HS MEDICATIONS GIVEN. EMPTIED 200 ML OF THICK DARK GREEN DRAINAGE FROM ILEOSTOMY BAG. EMPTIED 10 ML OF SEROUS DRAINAGE FROM MAYRA DRAIN.
--- NOTE | 2019-07-12 20:44 | NUR ---
GAVE X2 ORANGE SHEBERT FOR HS SNACK.
[2019-07-12 20:56] VITALS: BP 143/85
[2019-07-13 01:48] VITALS: BP 135/83
[2019-07-13 05:24] VITALS: BP 134/74
[2019-07-13 05:40] LABS: BASOPHILS 0.2 % (0-2); EOSINOPHILS 6.3 % (0-7); HEMATOCRIT 35.6 % (42.0-54.0); HEMOGLOBIN 11.6 g/dL (13.5-17.5); IMMATURE GRANULOCYTES 0.2 % (0-5); LYMPHOCYTES 10.1 % (15-50); MCH 30.7 pg (26.0-34.0); MCHC 32.6 g/dL (31.0-37.0); MCV 94.2 fL (80.0-100.0); MEAN PLATELET VOLUME 9.5 fL (7.4-10.4); MONOCYTES 8.8 % (2-11); NEUTROPHILS 74.4 % (40-80); PLATELET COUNT 362 10x3/uL (130-400); RBC 3.78 10x6/uL (4.20-6.10); RDW 12.7 % (11.5-14.5); WBC 12.2 10x3/uL (4.8-10.8)
[2019-07-13 06:21] LABS: CALC OSMOLALITY 282 mosm/kg (275-300); CALCIUM 8.3 mg/dL (8.5-10.1); CARBON DIOXIDE 26.8 mmol/L (21.0-32.0); CHLORIDE - SERUM 108 mmol/L (98-107); CREATININE - SERUM 0.5 mg/dL (0.6-1.3); GLUCOSE 144 mg/dL (74-106); POTASSIUM - SERUM 3.9 mmol/L (3.5-5.1); SODIUM 142 mmol/L (136-145); UREA NITROGEN 4 mg/dL (7-18); eGFR NON AFRICAN AMERICAN > 90 mL/min (90-120)
[2019-07-13 07:59] VITALS: BP 114/74
--- NOTE | 2019-07-13 09:18 | NUR ---
PT STATED HE IS HURTING BAD THIS MORNING, ADMINISTERED PRN PAIN MEDICATION, PT STATES SHOULD BE DC TODAY, PENDING DC INSTRUCTIONS, CONTINUE WITH PLAN OF CARE
--- NOTE | 2019-07-13 12:00 | NUR ---
SITTING UP IN BED,WITHOUT DISTRESS.
[2019-07-13] MEDS ORDERED: HYDROCODON-ACE1 EA10 PO (12:29)
--- NOTE | 2019-07-13 14:08 | NUR ---
Ostomy teaching provided with booklet on "living with your ostomy", ostomy suppliers list and information on local ostomy support group. [facility] will see patient tomorrow to continue teaching. 4" ileostomy kits provided along with skin barrier wipes and stoma paste. Demonstrated how to burp the bag, change the bag.
--- NOTE | 2019-07-13 14:10 | MORECARE ---
CASE MANAGEMENT DISCHARGE SUMMARY PATIENT: GUILLERMO KOLB UNIT: [id number] ADM DATE: 07/09/19 AGE: 59 : 56 SEX: M ROOM/BED: D.2224 AUTHOR: GIORGIO,DOC PHYSICIAN: REFERRING PHYSICIAN: MAGALI MENDOZA MD DATE OF SERVICE: 07/13/19 Discharge Plan Patient Name: GUILLERMO KOLB Facility: [facility]:[place] : 1960 Planned Disposition: Home with Home Health Anticipated Discharge Date: 07/13/19 Discharge Date: Expected LOS: 4 Initial Reviewer: [email or web address] Initial Review Date: 07/13/2019 Generated: 07/13/19 3:09 pm Comments DCP- Discharge Planning Updated by [email or web address]: Onelia Price on 07/13/19 1:[address] Patient Name: GUILLERMO KOLB Admission Status: Elective Accout number: [id number] Admission Date: 07-09-2019 : 1960 Admission Diagnosis:VESICOINTESTINAL FISTULA Attending: MAGALI MENDOZA Current LOS: 4 Anticipated DC Date: 07-13-2019 Planned Disposition: Home with Home Health Primary Insurance: [employer] PPO Discharge Planning Comments: CM met with patient to complete initial dc planning assessment. CM educated patient on the CM role and verbal consent given by patient to complete assessment. Patient lives at [address] [place] [address] with his room mate (Ivett). At discharge patient plans to return and feels this is a safe discharge. CM discussed availability of home health, rehab services, and medical equipment. [facility] for [facility] signed, he has had them in the past. I called [facility] and spoke with Karon and clinical and order faxed. His friend (Gerry) is picking him up for discharge. Ester with wound care has instructed on ostomy care. His nurse to supply ostomy supplies until he can get them from [facility]. CM will continue to follow and will assist as needed with dc plans/needs. Radiologist: Onelia Price DCPIA - Discharge Planning Initial Assessment Updated by [id number]: Onelia Price on 07/13/19 2:05 pm * Is the patient Alert and Oriented? Yes * How many steps to enter\exit or inside your home? 15/0 * PCP Dr. Kimble * [facility] [address] * Preadmission Environment Home with Family * ADLs Independent * Equipment Other Oxygen * Other Equipment Portable oxygen * List name and contact numbers for known caregivers / representatives who currently or will assist patient after discharge: Karlee Sellers - room [facility] - [phone] Gerry myers - [phone] * Verbal permission to speak to the caregivers and representatives has been obtained from the patient. Yes * Community resources currently utilized None * Please name any agencies selected above. [facility] is DME for oxygen * Additional services required to return to the preadmission environment? Yes * Can the patient safely return to the preadmission environment? Yes * Has this patient been hospitalized within the prior 30 days at any hospital? No External Providers External Provider: [facility] Next Contact Date: Service Request Date: Service Type: Resolution: Reviewer: Comments: Coverage Notice Reviewer: [email or web address] Jennifer Price Notice Issued Date-Time: 07/13/2019 14:02 Notice Type: Patient Choice Letter Notice Delivered To: Patient Relationship to Patient: Self Yarder Operator Name: Delivery Method: HAND - Hand Delivered Gaye Days: Prior Verbal Notification: Recipient Understood Notice: Yes Recipient Signature: Yes Med Rec Note Co-signed by Attending: Coverage Notice Comment: STACY for Wilver [facility] Patient Name: GUILLERMO KOLB Page [id number] at 1410 All edits/amendments must be made on the electronic document DICTATION DATE: 07/13/191408 CLEANING MACHINE OPERATOR: LUCIO 07/13/19 140 RPT#: [id number] DC DATE: STATUS: ADM IN [facility] [address] [place] [address] END OF REPORT
--- NOTE | 2019-07-14 16:45 | MORECARE ---
CASE MANAGEMENT DISCHARGE SUMMARY PATIENT: GUILLERMO KOLB UNIT: [id number] ADM DATE: 07/09/19 AGE: 59 : 56 SEX: M ROOM/BED: D.2224 AUTHOR: GIORGIO,DOC PHYSICIAN: REFERRING PHYSICIAN: MAGALI MENDOZA MD DATE OF SERVICE: 07/14/19 Discharge Plan Patient Name: GUILLERMO KOLB Facility: [facility]:[place] : 1960 Planned Disposition: Home with Home Health Anticipated Discharge Date: 07/13/19 Discharge Date: 07/13/2019 Expected LOS: 4 Initial Reviewer: [email or web address] Initial Review Date: 07/13/2019 Generated: 07/14/19 5:45 pm Comments DCP- Discharge Planning Updated by [id number]: Onelia Price on 07/13/19 1:[address] Patient Name: GUILLERMO KOLB Admission Status: Elective Accout number: [id number] Admission Date: 07-09-2019 : 1960 Admission Diagnosis:VESICOINTESTINAL FISTULA Attending: MAGALI MENDOZA Current LOS: 4 Anticipated DC Date: 07-13-2019 Planned Disposition: Home with Home Health Primary Insurance: [employer] PPO Discharge Planning Comments: CM met with patient to complete initial dc planning assessment. CM educated patient on the CM role and verbal consent given by patient to complete assessment. Patient lives at [address] [place] [address] with his room mate (Ivett). At discharge patient plans to return and feels this is a safe discharge. CM discussed availability of home health, rehab services, and medical equipment. [facility] for [facility] signed, he has had them in the past. I called [facility] and spoke with Karon and clinical and order faxed. His friend (Gerry) is picking him up for discharge. Ester with wound care has instructed on ostomy care. His nurse to supply ostomy supplies until he can get them from [facility]. CM will continue to follow and will assist as needed with dc plans/needs. Civil Draftsman: Onelia Price DCPIA - Discharge Planning Initial Assessment Updated by [email or web address]: Onelia Price on 07/13/19 2:05 pm * Is the patient Alert and Oriented? Yes * How many steps to enter\exit or inside your home? 15/0 * PCP Dr. Kimble * [facility]acy [facility] [address] * Preadmission Environment Home with Family * ADLs Independent * Equipment Other Oxygen * Other Equipment Portable oxygen * List name and contact numbers for known caregivers / representatives who currently or will assist patient after discharge: Karlee Sellers - room [facility] - [phone] Gerry friend - [phone] * Verbal permission to speak to the caregivers and representatives has been obtained from the patient. Yes * Community resources currently utilized None * Please name any agencies selected above. [facility] is DME for oxygen * Additional services required to return to the preadmission environment? Yes * Can the patient safely return to the preadmission environment? Yes * Has this patient been hospitalized within the prior 30 days at any hospital? No Coverage Notice Reviewer: [email or web address] Jennifer Price Notice Issued Date-Time: 07/13/2019 14:02 Notice Type: Patient Choice Letter Notice Delivered To: Patient Relationship to Patient: Self Television News Reporter Name: Delivery Method: HAND - Hand Delivered Gaye Days: Prior Verbal Notification: Recipient Understood Notice: Yes Recipient Signature: Yes Med Rec Note Co-signed by Attending: Coverage Notice Comment: STACY for Wilver [facility] Last DP export: 07/13/19 1:10 p Patient Name: GUILLERMO KOLB Page [phone] at 1645 All edits/amendments must be made on the electronic document DICTATION DATE: 07/14/191644 FARM DEMONSTRATOR: LUCIO 07/14/191644 RPT#: [id number] DC DATE:07/13/19 STATUS: DIS IN [facility] [address] [place] [address] END OF REPORT
== END 2019-07-13 15:21 | disposition home health service (06) | DRG 982 ==
LOC: D.MS 07-09 07:15 → D.SDCHOLD 07-09 07:15 → D.MS 07-09 13:40
PROVIDERS: ADMIT Surgery; ATTEND Surgery
PROC: 0D1B0Z4 Bypass Ileum to Cutaneous, Open Approach (ICD-10-PCS; 2019-07-09)
PROC: 0DTP0ZZ Resection of Rectum, Open Approach (ICD-10-PCS; principal; 2019-07-09 09:30)
DX: N32.1 Vesicointestinal fistula (principal); K57.92 Diverticulitis of intestine, part unspecified, without perforation or abscess without bleeding; J44.9 Chronic obstructive pulmonary disease, unspecified; F17.200 Nicotine dependence, unspecified, uncomplicated

== ENCOUNTER → 2019-07-15 14:19 | Outpatient (CLI) | payer OTHER ==
[2019-07-10 13:43] VITALS: BMI 31.1
[~2019-07-15 14:19] MED LIST changes: +ALBUTEROL SULF8.5 GM INH; +HYDROCODON-ACE1 EA10 PO
== END | disposition home or self-care (01) ==
LOC: D.RAD 14:19
PROVIDERS: ATTEND Surgery
DX: N32.1 Vesicointestinal fistula (principal)

== ENCOUNTER 2019-08-10 08:34 | Inpatient (IN) | payer OTHER ==
[~2019-08-10] VITALS: Ht 188 cm; Wt 64.5 kg
[2019-08-10 09:12] LABS: CALC OSMOLALITY 283 mosm/kg (275-300); CALCIUM 9.1 mg/dL (8.5-10.1); CARBON DIOXIDE 28.1 mmol/L (21.0-32.0); CHLORIDE - SERUM 95 mmol/L (98-107); CREATININE - SERUM 1.6 mg/dL (0.6-1.3); GLUCOSE 167 mg/dL (74-106); POTASSIUM - SERUM 4.4 mmol/L (3.5-5.1); SODIUM 135 mmol/L (136-145); UREA NITROGEN 41 mg/dL (7-18); eGFR NON AFRICAN AMERICAN 47 mL/min (90-120)
[2019-08-10 09:22] LABS: ALBUMIN 4.1 g/dL (3.4-5.0); ALKALINE PHOSPHATASE 127 U/L (46-116); ALT (SGPT) 20 U/L (10-68); AMYLASE - SERUM 17 U/L (25-115); BILIRUBIN - TOTAL 1.02 mg/dL (0.2-1.3); LIPASE 43 U/L (73-393); PROTEIN - SERUM 8.9 g/dL (6.4-8.2); TROPONIN-I < 0.017 ng/mL (0.000-0.060)
[2019-08-10 09:41] LABS: APPEARANCE HAZY (CLEAR); BILIRUBIN NEGATIVE (NEGATIVE); COLOR DK YELLOW (YELLOW); GLUCOSE NEGATIVE (NEGATIVE); KETONE NEGATIVE (NEGATIVE); NITRITE NEGATIVE (NEGATIVE); PROTEIN 1+ mg/dL (NEGATIVE); SPECIFIC GRAVITY 1.025 (1.005-1.020); UROBILINOGEN NORMAL (NORMAL)
[2019-08-10 09:43] LABS: BACTERIA FEW /hpf (NEGATIVE); EPITHELIAL CELLS 0-5 /hpf (0-5); GRANULAR CAST OCC /lpf (NONE SEEN); HYALINE CAST 0-5 /lpf (NONE SEEN); MUCUS >1+ /lpf (NONE SEEN); RED CELLS - URINE 0-5 /hpf (0-5); WHITE CELLS - URINE 0-5 /hpf (NEGATIVE)
[2019-08-10 10:07] LABS: BASOPHILS 0.2 % (0-2); EOSINOPHILS 0.2 % (0-7); HEMATOCRIT 53.9 % (42.0-54.0); HEMOGLOBIN 17.8 g/dL (13.5-17.5); IMMATURE GRANULOCYTES 0.2 % (0-5); LYMPHOCYTES 10.4 % (15-50); MCH 30.9 pg (26.0-34.0); MCV 93.6 fL (80.0-100.0); MEAN PLATELET VOLUME 10.2 fL (7.4-10.4); MONOCYTES 15.7 % (2-11); NEUTROPHILS 73.3 % (40-80); PLATELET COUNT 376 10x3/uL (130-400); RBC 5.76 10x6/uL (4.20-6.10); RDW 12.8 % (11.5-14.5); WBC 12.6 10x3/uL (4.8-10.8)
[2019-08-10 11:05] VITALS: BP 129/76
--- NOTE | 2019-08-10 12:15 | NUR ---
TO ROOM 2229 FROM ER VIA WHEELCHAIR. ASSESSMENT PER FLOW SHEET. PT IS WITHOUT DISTRESS.MONITOR FOR NEEDS.CALL LIGHT IN REACH
--- NOTE | 2019-08-10 13:01 | MORECARE ---
CASE MANAGEMENT DISCHARGE SUMMARY PATIENT: GUILLERMO KOLB UNIT: [id number] ADM DATE: 08/10/19 AGE: 59 : 56 SEX: M ROOM/BED: D.2229 AUTHOR: GIORGIO,DOC PHYSICIAN: REFERRING PHYSICIAN: RAMILA PANDEY MD DATE OF SERVICE: 08/10/19 Discharge Plan Patient Name: GUILLERMO KOLB Facility: [facility]:[place] : 1960 Planned Disposition: Home with Home Health Anticipated Discharge Date: 08/12/19 Discharge Date: Expected LOS: 2 Initial Reviewer: [email or web address] Initial Review Date: 08/10/2019 Generated: 08/10/19 2:01 pm DCP- Discharge Planning Updated by [email or web address]: Rosy Santiago on 08/10/19 11:[address] DC PLAN: Return home with room-mate (ex-, Carrie) and resumption of [facility]. ANTICIPATED DC NEEDS: Resumption of [facility]. CM met with patient to complete initial dc planning assessment. CM educated patient on the CM role and verbal consent given by patient to complete assessment. CM verified patient's address, phone number, and emergency contact phone numbers. Patient lives at home with a room mate who he said is his ex-. Patient currently has [facility] and wishes to resume at discharge. STACY form signed by patient for resumption of [facility]. Signed form placed in chart and signed form given to patient. At discharge patient plans to return home and feels this is a safe discharge. Patient denied further known discharge needs at this time. . Transportation provider at discharge will be his ex- Carrie . CM will continue to follow and will assist as needed with dc plans/needs. Rosy Santiago RN, [facility] DCPIA - Discharge Planning Initial Assessment Updated by [email or web address]: Rosy Santiago on 08/10/19 12:59 pm * Is the patient Alert and Oriented? Yes * How many steps to enter\exit or inside your home? * PCP Dr. Kimble * Pharmacy [facility] [address] * Preadmission Environment Home with Family * ADLs Independent * Equipment Oxygen * Other Equipment [employer] - wears at HS and PRN. Has Portable * List name and contact numbers for known caregivers / representatives who currently or will assist patient after discharge: Jerzy loyd - [phone] Taco loyd - [phone] * Verbal permission to speak to the caregivers and representatives has been obtained from the patient. Yes * Community resources currently utilized Home Health * Please name any agencies selected above. Wilver KUMAR singed in ER for resumption. * Additional services required to return to the preadmission environment? No * Can the patient safely return to the preadmission environment? Yes * Has this patient been hospitalized within the prior 30 days at any hospital? No Patient Name: GUILLERMO KOLB Page [phone] at 1301 All edits/amendments must be made on the electronic document DICTATION DATE: 08/10/19 1301 NOVELTY MAKER: LUCIO 08/10/19 1301 RPT#: [id number] DC DATE: STATUS: ADM IN [facility] [address] [place] [address] END OF REPORT
[2019-08-10 16:44] VITALS: BP 120/78; Ht 188 cm; Wt 64.5 kg
[2019-08-10 16:51] VITALS: BP 136/86
--- NOTE | 2019-08-10 19:30 | NUR ---
PATIENT RESTING IN BED WITH NO S/S OF DISTRESS. PATIENT REQUESTED PAIN MEDICATION. ELIJAH REINA ADMINISTERING PAIN MEDS PER ORDERS. PATIENT DENIES OTHER NEEDS AT THIS TIME. BED IN LOWEST POSITION AND CALL LIGHT WITHIN REACH. ENCOURAGED THE PATIENT TO CALL IF HE HAS NEEDS. WILL CONTINUE TO MONITOR.
--- NOTE | 2019-08-10 19:44 | NUR ---
REMAINS WITHOUT DISTRESS.MEDS ORDERED FOR PAIN 6/10 SCALE TO ABDOMEN.CONT PLAN OF CARE.
[2019-08-10 20:00] VITALS: BP 137/77
[2019-08-11] VITALS: BP 127/69
[2019-08-11 06:54] LABS: BASOPHILS 0.4 % (0-2); EOSINOPHILS 3.9 % (0-7); IMMATURE GRANULOCYTES 0.1 % (0-5); LYMPHOCYTES 19.2 % (15-50); MCH 30.5 pg (26.0-34.0); MCHC 32.4 g/dL (31.0-37.0); MCV 94.1 fL (80.0-100.0); MONOCYTES 18.2 % (2-11); NEUTROPHILS 58.2 % (40-80); PLATELET COUNT 308 10x3/uL (130-400); RDW 12.8 % (11.5-14.5)
[2019-08-11 07:05] LABS: CALCIUM 8.3 mg/dL (8.5-10.1); CARBON DIOXIDE 27.4 mmol/L (21.0-32.0); CHLORIDE - SERUM 99 mmol/L (98-107); GLUCOSE 129 mg/dL (74-106); SODIUM 133 mmol/L (136-145)
[2019-08-11 07:06] LABS: CALC OSMOLALITY 269 mosm/kg (275-300); CREATININE - SERUM 0.7 mg/dL (0.6-1.3); POTASSIUM - SERUM 3.6 mmol/L (3.5-5.1); UREA NITROGEN 19 mg/dL (7-18); eGFR NON AFRICAN AMERICAN > 90 mL/min (90-120)
--- NOTE | 2019-08-11 07:15 | NUR ---
ALERT AND ORIENTED, RESTING IN BED. IV TO RIGHT AC, D5LR WITH 20K+ INFUSING @ 125 ML/HR. SITE PATENT WITHOUT REDNESS OR SWELLING. NO C/O PAIN. NO S/S OF ACUTE DISTRESS NOTED. COLOSTOMY PRESENT. DENIES ANY NEEDS AT THIS TIME. CALL LIGHT IN REACH. WILL CONTINUE TO MONITOR.
[2019-08-11 07:22] LABS: HEMATOCRIT 41.4 % (42.0-54.0); HEMOGLOBIN 13.4 g/dL (13.5-17.5); WBC 7.4 10x3/uL (4.8-10.8)
[2019-08-11 08:22] VITALS: BP 133/72
[2019-08-11 12:37] VITALS: BP 130/72
[2019-08-11] MEDS ORDERED: HYDROCODON-ACE1 EA10 PO ×2 (13:08→14:25)
--- NOTE | 2019-08-11 13:56 | MORECARE ---
CASE MANAGEMENT DISCHARGE SUMMARY PATIENT: GUILLERMO KOLB UNIT: [id number] ADM DATE: 08/10/19 AGE: 59 : 56 SEX: M ROOM/BED: D.2229 AUTHOR: GIORGIODOC PHYSICIAN: REFERRING PHYSICIAN: MAGALI MENDOZA MD DATE OF SERVICE: 08/11/19 Discharge Plan Patient Name: GUILLERMO KOLB Facility: [facility]:[place] : 1960 Planned Disposition: Home with Home Health Anticipated Discharge Date: 08/12/19 Discharge Date: Expected LOS: 2 Initial Reviewer: [email or web address] Initial Review Date: 08/10/2019 Generated: 08/11/19 2:55 pm Comments DCP- Discharge Planning Updated by [email or web address]: Onelia Price on 08/11/19 12:[address] Patient Name: GUILLERMO KOLB Encounter No: [id number] : 1960 Primary Insurance: [employer] PPO Anticipated DC Date: 08-12-2019 Planned Disposition: Home with Home Health External Planned Provider: : DCP follow-up note: Patient and family in agreement with discharge plan. No changes to plan. Discharging home today with resumption of [facility]. I spoke with Karon at [facility] and clinical/order faxed. Case management will follow and assist as needed. Onelia Price DCP- Discharge Planning Updated by [email or web address]: Rosy Santiago on 08/10/19 11:[address] DC PLAN: Return home with room-mate (ex-, Carrie) and resumption of [facility]. ANTICIPATED DC NEEDS: Resumption of [facility]. CM met with patient to complete initial dc planning assessment. CM educated patient on the CM role and verbal consent given by patient to complete assessment. CM verified patient's address, phone number, and emergency contact phone numbers. Patient lives at home with a room mate who he said is his ex-. Patient currently has [facility] and wishes to resume at discharge. STACY form signed by patient for resumption of [facility]. Signed form placed in chart and signed form given to patient. At discharge patient plans to return home and feels this is a safe discharge. Patient denied further known discharge needs at this time. . Transportation provider at discharge will be his ex- Carrie . CM will continue to follow and will assist as needed with dc plans/needs. Rosy Santiago RN, [facility] DCPIA - Discharge Planning Initial Assessment Updated by [email or web address]: Rosy Santiago on 08/10/19 12:59 pm * Is the patient Alert and Oriented? Yes * How many steps to enter\exit or inside your home? * PCP Dr. Kimble * Pharmacy [facility] [address] * Preadmission Environment Home with Family * ADLs Independent * Equipment Oxygen * Other Equipment [employer] - wears at HS and PRN. Has Portable * List name and contact numbers for known caregivers / representatives who currently or will assist patient after discharge: Jerzy Arpit - rach - [phone] Taco Arpit loyd - [phone] * Verbal permission to speak to the caregivers and representatives has been obtained from the patient. Yes * Community resources currently utilized Home Health * Please name any agencies selected above. [facility] STACY singed in ER for resumption. * Additional services required to return to the preadmission environment? No * Can the patient safely return to the preadmission environment? Yes * Has this patient been hospitalized within the prior 30 days at any hospital? No External Providers External Provider: [facility] Next Contact Date: Service Request Date: Service Type: Resolution: Reviewer: Comments: Last DP export: 08/10/19 12:01 Patient Name: GUILLERMO KOLB Page [id number] at 1356 All edits/amendments must be made on the electronic document DICTATION DATE: 08/11/19 1358 PAPER MACHINE BACK TENDER: LUCIO 08/11/19 1358 RPT#: [id number] DC DATE: STATUS: ADM IN [facility] [address] [place] [address] END OF REPORT
--- NOTE | 2019-08-11 15:45 | NUR ---
DISCHARGED PATIENT HOME WITH FAMILY VIA WHEELCHAIR, ACCOMPANIED BY STAFF. DISCONTINUED IV, CATHETER TIP INTACT. WENT OVER DISCHARGE INSTRUCTIONS WITH PATIENT, VERBALIZED UNDERSTANDING. DENIES ANYTHING FURTHER.
--- NOTE | 2019-08-12 17:04 | MORECARE ---
CASE MANAGEMENT DISCHARGE SUMMARY PATIENT: GUILLERMO KOLB UNIT: [id number] ADM DATE: 08/10/19 AGE: 59 : 56 SEX: M ROOM/BED: D.2229 AUTHOR: GIORGIO,DOC PHYSICIAN: REFERRING PHYSICIAN: MAGALI MENDOZA MD DATE OF SERVICE: 08/12/19 Discharge Plan Patient Name: GUILLERMO KOLB Facility: [facility]:[place] : 1960 Planned Disposition: Home with Home Health Anticipated Discharge Date: 08/12/19 Discharge Date: 08/11/2019 Expected LOS: 2 Initial Reviewer: [email or web address] Initial Review Date: 08/10/2019 Generated: 08/12/19 6:03 pm Comments DCP- Discharge Planning Updated by [email or web address]: Onelia Price on 08/11/19 12:[address] Patient Name: GUILLERMO KOLB Encounter No: [id number] : 1960 Primary Insurance: [email or web address] PPO Anticipated DC Date: 08-12-2019 Planned Disposition: Home with Home Health External Planned Provider: : DCP follow-up note: Patient and family in agreement with discharge plan. No changes to plan. Discharging home today with resumption of [facility]. I spoke with Karon at [facility] and clinical/order faxed. Case management will follow and assist as needed. Onelia Price DCP- Discharge Planning Updated by [email or web address]: Rosy Santiago on 08/10/19 11:[address] DC PLAN: Return home with room-mate (ex-, Carrie) and resumption of [facility]. ANTICIPATED DC NEEDS: Resumption of [facility]. CM met with patient to complete initial dc planning assessment. CM educated patient on the CM role and verbal consent given by patient to complete assessment. CM verified patient's address, phone number, and emergency contact phone numbers. Patient lives at home with a room mate who he said is his ex-. Patient currently has [facility] and wishes to resume at discharge. STACY form signed by patient for resumption of [facility]. Signed form placed in chart and signed form given to patient. At discharge patient plans to return home and feels this is a safe discharge. Patient denied further known discharge needs at this time. . Transportation provider at discharge will be his ex- Carrie . CM will continue to follow and will assist as needed with dc plans/needs. Rosy Santiago RN, [facility] DCPIA - Discharge Planning Initial Assessment Updated by [email or web address]: Rosy Santiago on 08/10/19 12:59 pm * Is the patient Alert and Oriented? Yes * How many steps to enter\exit or inside your home? * PCP Dr. Kimble * Pharmacy [facility] [address] * Preadmission Environment Home with Family * ADLs Independent * Equipment Oxygen * Other Equipment [employer] - wears at HS and PRN. Has Portable * List name and contact numbers for known caregivers / representatives who currently or will assist patient after discharge: Jerzy Kolb - rach - [phone] Taco Arpit loyd - [phone] * Verbal permission to speak to the caregivers and representatives has been obtained from the patient. Yes * Community resources currently utilized Home Health * Please name any agencies selected above. [facility] - STACY singed in ER for resumption. * Additional services required to return to the preadmission environment? No * Can the patient safely return to the preadmission environment? Yes * Has this patient been hospitalized within the prior 30 days at any hospital? No Last DP export: 08/11/19 12:56 Patient Name: GUILLERMO KOLB Page 17932 at 1704 All edits/amendments must be made on the electronic document DICTATION DATE: 08/12/191702 SUCCESS COACH: LUCIO 08/12/191702 RPT#: [id number] DC DATE:08/11/19 STATUS: DIS IN [facility] [address] [place] [address] END OF REPORT
[2019-08-14 04:07] LABS: OVA + PARASITE EXAM Final report (())
== END 2019-08-11 15:57 | disposition home or self-care (01) | DRG 389 ==
LOC: D.ER 08:34 → D.MS 11:16
PROVIDERS: Family Medicine; Surgery; ADMIT Surgery; ATTEND Surgery
DX: K56.7 Ileus, unspecified (principal); N17.9 Acute kidney failure, unspecified; K52.9 Noninfective gastroenteritis and colitis, unspecified; E86.0 Dehydration

== ENCOUNTER → 2019-08-19 09:15 | Outpatient (CLI) | payer OTHER ==
[2019-08-10 16:44] VITALS: BMI 18.2
== END | disposition home or self-care (01) ==
LOC: D.RAD 09:15
PROVIDERS: ATTEND Surgery
DX: Z93.2 Ileostomy status (principal)

== ENCOUNTER 2019-09-01 06:22 | Day surgery (SDC) | payer OTHER ==
[~2019-09-01] VITALS: Ht 188 cm; Wt 52.2 kg
[2019-09-01 06:54] LABS: BASOPHILS 0.4 % (0-2); EOSINOPHILS 6.1 % (0-7); HEMOGLOBIN 13.2 g/dL (13.5-17.5); IMMATURE GRANULOCYTES 0.3 % (0-5); LYMPHOCYTES 23.7 % (15-50); MCH 30.6 pg (26.0-34.0); MCV 92.6 fL (80.0-100.0); MEAN PLATELET VOLUME 8.8 fL (7.4-10.4); MONOCYTES 11.8 % (2-11); NEUTROPHILS 57.7 % (40-80); RBC 4.32 10x6/uL (4.20-6.10); RDW 12.2 % (11.5-14.5); WBC 9.3 10x3/uL (4.8-10.8)
[2019-09-01 07:10] LABS: CALC OSMOLALITY 268 mosm/kg (275-300); CALCIUM 9.2 mg/dL (8.5-10.1); CARBON DIOXIDE 28.9 mmol/L (21.0-32.0); CHLORIDE - SERUM 98 mmol/L (98-107); CREATININE - SERUM 0.7 mg/dL (0.6-1.3); GLUCOSE 114 mg/dL (74-106); POTASSIUM - SERUM 3.8 mmol/L (3.5-5.1); SODIUM 135 mmol/L (136-145); UREA NITROGEN 6 mg/dL (7-18); eGFR NON AFRICAN AMERICAN > 90 mL/min (90-120)
[2019-09-01 07:14] LABS: PLATELET COUNT 439 10x3/uL (130-400)
[2019-09-01 07:30] VITALS: Ht 188 cm; Wt 52.2 kg
--- NOTE | 2019-09-01 08:48 | NUR ---
0840 ASSISSTED UP TO BR VOIDS AND EMPTIES ILIOSTOMY BAG.
--- NOTE | 2019-09-01 11:36 | NUR ---
1135 ROOM CHECK, IV PATENT. PT. LOOKING ON PHONE. DENIES NEEDS.
--- NOTE | 2019-09-01 13:22 | NUR ---
1305 RETURNED TO 2517 UP TO BR VOIDS AND PASSES FLATUS AND SOME BM ILIOSTOMY BAG EMPTIED. DR. MENDOZA HAS GIVEN PT THE RESULTS OF TODAY.
--- NOTE | 2019-09-01 14:08 | NUR ---
1405 PT'S RIDE IS HERE, RELEASED IN WC WITH ESCORT.
--- NOTE | 2019-09-15 13:37 | OP ---
PATIENT NAME: GUILLERMO KOLB MEDICAL RECORD: [id number] :[birth year] LOCATION:D.OPS ADMISSION DATE: SURGEON: SAURAV MENDOZA MD DATE OF OPERATION: 09/01/2019 PREOPERATIVE DIAGNOSES: 1. Loop ileostomy. 2. History of vesicocolonic fistula status post LAR. 3. Chronic obstructive pulmonary disease. POSTOPERATIVE DIAGNOSES: 1. Loop ileostomy. 2. History of vesicocolonic fistula status post LAR. 3. Chronic obstructive pulmonary disease. PROCEDURE: Flexible sigmoidoscopy. SURGEON: Saurav Mendoza MD REPORT OF PROCEDURE: The patient was placed on his left side. An Olympus endoscope was advanced through the anus. We were able to pass through to about 35 cm, which places in the sigmoid colon. This portion of the colon appeared normal with no sign of any diverticula. As we pulled the camera back, we were able to see that the patient had an anastomosis at about 10 cm from the anus. At this anastomotic site, we could see a small piece of suture and a couple of gage. The anastomosis itself appeared to be well healed. Just anterior to the anastomosis, there appeared to be a pocket, which opened up. It looked like this may be a portion of the bowel. As we went into this pocket, we could see that the patient had a small opening at the most distal aspect. This opening was too small to cannulate. I tried to irrigate it out and there was not any contents that came through it. What looked like was that the anastomosis from previous surgery had actually redone on the posterior aspect of the patient's rectum and the channel that we were passing into was the most proximal aspect of the rectum. Everything appeared to be healing nicely, but there was one small opening present. I did not see any evidence of any purulent material. At this point, the insufflation and the scope were removed. COMPLICATIONS: None. CONDITION: Stable. ANESTHESIA: TIVA. BLOOD LOSS: Minimal. TRANSINT:[id number] Voice Confirmation ID: [id number] DOCUMENT ID: [id number] OPERATIVE REPORT [id number] GUILLERMO KOLB SAURAV MENDOZA MD at 1337 CC: ESDRAS JACK MD [id number] DICTATION DATE: 09/01/19 1250 LINE ASSEMBLER AIRCRAFT: 09/01/19 1302 [facility] 09/01/19 [facility] [address] [place] [address]
== END 2019-09-01 14:05 | disposition home or self-care (01) ==
LOC: D.OPS 06:22
PROVIDERS: ATTEND Surgery
DX: K57.90 Diverticulosis of intestine, part unspecified, without perforation or abscess without bleeding (principal); Z93.2 Ileostomy status; J44.9 Chronic obstructive pulmonary disease, unspecified; N32.1 Vesicointestinal fistula

== ENCOUNTER → 2019-09-30 10:17 | Outpatient (CLI) | payer OTHER ==
[2019-09-01 07:30] VITALS: BMI 19.3
== END | disposition home or self-care (01) ==
LOC: D.CT 10:17
PROVIDERS: ATTEND Surgery
DX: N32.1 Vesicointestinal fistula (principal)

== ENCOUNTER 2019-09-30 17:34 | Inpatient (IN) | payer OTHER ==
[~2019-09-30] VITALS: Ht 188 cm; Wt 70.8 kg
--- NOTE | ~2019-09-30 | OP ---
PATIENT NAME: GUILLERMO KOLB MEDICAL RECORD: [id number] :56 LOCATION:D.MS Dave2214 ADMISSION DATE:10/01/19 SURGEON: SAURAV MENDOZA MD DATE OF OPERATION: 10/01/2019 PREOPERATIVE DIAGNOSES: 1. Ileostomy. 2. History of vesicocolonic fistula. 3. Chronic obstructive pulmonary disease. POSTOPERATIVE DIAGNOSES: 1. Ileostomy. 2. History of vesicocolonic fistula. 3. Chronic obstructive pulmonary disease. PROCEDURE: Ileostomy takedown. SURGEON: Saurav Mendoza MD REPORT OF PROCEDURE: The patient's abdomen was prepped and draped in sterile fashion. The patient had a loop ileostomy in the right lower quadrant. Using electrocautery, we scored around the skin and came through the subcutaneous tissues. We came right next to the ileostomy and its surrounding tissues and I was eventually able to free the ileostomy completely up until it was eviscerated out through the wound. We transected the distal ends of the ileostomy down to what appeared to be normal bowel using a 75 blue load JERO stapler. The mesentery was taken down with sequential clamp and tie technique with 3-0 silks. We then performed a afii-vt-kpto anastomosis of the small bowel by making enterotomies in the distal ends of the small bowel and using a 75 blue load JERO stapler. The enterotomies were then closed with a 30 blue load TA stapler. We oversewed the staple lines using Lemberted 3-0 silks. We were able to easily push the bowel back into the abdominal cavity at this point. There was no sign of any leakage from the bowel and there was no sign of any bleeding. We freed up the fascia on the anterior layer of the abdomen and closed the posterior layer of tissue behind the musculature using a running 2-0 Vicryl. The fascia was closed anteriorly with multiple interrupted 0 Prolenes. We then irrigated out the wound with normal saline. The subcutaneous tissues were closed in a pursestring fashion using a 3-0 Vicryl and the skin was closed in a pursestring fashion using a 2-0 Vicryl. A piece of Telfa was placed into the wound and this was covered with 4x4 and gauze. COMPLICATIONS: None. CONDITION: Stable. ANESTHESIA: General endotracheal. BLOOD LOSS: Minimal. TRANSINT:[id number] Voice Confirmation ID: [id number] DOCUMENT ID: [id number] OPERATIVE REPORT [id number] GUILLERMO KOLB CHRISTIAN MD CC: ESDRAS JACK MD [id number] DICTATION DATE: 10/01/19949 TOILET ATTENDANT: 10/01/19 1110 ADM IN [facility] [id number] [place] [address]
[2019-10-01 06:38] LABS: BASOPHILS 0.4 % (0-2); EOSINOPHILS 1.7 % (0-7); HEMATOCRIT 49.5 % (42.0-54.0); HEMOGLOBIN 16.6 g/dL (13.5-17.5); IMMATURE GRANULOCYTES 0.2 % (0-5); MCH 30.9 pg (26.0-34.0); MCHC 33.5 g/dL (31.0-37.0); MCV 92.2 fL (80.0-100.0); MONOCYTES 8.5 % (2-11); NEUTROPHILS 75.2 % (40-80); RBC 5.37 10x6/uL (4.20-6.10); RDW 13.5 % (11.5-14.5); WBC 12.3 10x3/uL (4.8-10.8)
[2019-10-01 06:49] LABS: PLATELET COUNT 347 10x3/uL (130-400)
[2019-10-01 07:02] LABS: CALC OSMOLALITY 271 mosm/kg (275-300); CALCIUM 9.4 mg/dL (8.5-10.1); CARBON DIOXIDE 28.5 mmol/L (21.0-32.0); CHLORIDE - SERUM 101 mmol/L (98-107); CREATININE - SERUM 0.8 mg/dL (0.6-1.3); GLUCOSE 103 mg/dL (74-106); POTASSIUM - SERUM 4.3 mmol/L (3.5-5.1); SODIUM 136 mmol/L (136-145); UREA NITROGEN 12 mg/dL (7-18); eGFR NON AFRICAN AMERICAN > 90 mL/min (90-120)
[2019-10-01 07:28] VITALS: BP 119/69; BMI 19.4
[2019-10-01 10:52] VITALS: BP 157/81
--- NOTE | 2019-10-01 11:08 | NUR ---
RECEIVED PATIENT FROM RECOVERY SLIGHTLY DROWSY C/O PAIN. HR 49 AT ADMISSION, UNABLE TO GIVE PAIN MED D/T HR LOW. NO S/S OF ACUTE DISTRESS NOTED. ON 2L O2, NC O2 SAT 100%. IV TO LEFT FOREARM, SL. SITE PATENT WITHOUT REDNESS OR SWELLING. AT BEDSIDE. ABODOMINAL INCISION, DRESSING C/D/I. DENIES ANY NEEDS AT THIS TIME. CALL LIGHT IN REACH. WILL CONTINUE TO MONITOR.
[2019-10-01 11:45] VITALS: BP 157/81
[2019-10-01 12:00] VITALS: BP 129/69
[2019-10-01 17:04] VITALS: BP 107/64
--- NOTE | 2019-10-01 18:53 | NUR ---
ALERT AND ORIENTED, RESTING IN BED WITH EYES OPEN. NO C/O PAIN. NO S/S OF ACUTE DISTRESS NOTED. CALL LIGHT IN REACH. WILL CONTINUE TO MONITOR.
--- NOTE | 2019-10-01 19:44 | NUR ---
IN BED WITH TV ON, NO S/S OF ANY DISTRESS. ALERT AND ORIENTED TIMES FOUR. HAS PAIN TO LOWER ABD. DRESSING CHANGE PER ORDERS. IV TO LEFT HAND INFUSING VIA ORDERS. TOP CAGER INFUSING PER ORDERS. WILL NOTE ANY CHANGE.
[2019-10-01 20:00] VITALS: BP 100/63
[2019-10-02] VITALS: BP 119/75
--- NOTE | 2019-10-02 02:34 | NUR ---
I have reviewed this patient and I concur with the Shift Assessment completed by the Licensed Practical Nurse today this shift.
[2019-10-02 04:00] VITALS: BP 95/62
--- NOTE | 2019-10-02 06:01 | NUR ---
STATED HE HAD A BOWEL MOVEMENT THIS SHIFT, BLOOD TINGED. LARGE VOLUME. NO PAIN.
[2019-10-02 06:43] LABS: CALC OSMOLALITY 271 mosm/kg (275-300); CALCIUM 7.6 mg/dL (8.5-10.1); CARBON DIOXIDE 24.6 mmol/L (21.0-32.0); CHLORIDE - SERUM 103 mmol/L (98-107); CREATININE - SERUM 0.5 mg/dL (0.6-1.3); GLUCOSE 103 mg/dL (74-106); POTASSIUM - SERUM 3.7 mmol/L (3.5-5.1); SODIUM 137 mmol/L (136-145); UREA NITROGEN 6 mg/dL (7-18); eGFR NON AFRICAN AMERICAN > 90 mL/min (90-120)
[2019-10-02 08:35] LABS: BASOPHILS 0.3 % (0-2); EOSINOPHILS 1.5 % (0-7); IMMATURE GRANULOCYTES 0.3 % (0-5); LYMPHOCYTES 15.4 % (15-50); MCH 30.1 pg (26.0-34.0); MCHC 32.7 g/dL (31.0-37.0); MCV 92.2 fL (80.0-100.0); MEAN PLATELET VOLUME 9.1 fL (7.4-10.4); MONOCYTES 10.1 % (2-11); NEUTROPHILS 72.4 % (40-80); PLATELET COUNT 289 10x3/uL (130-400); RDW 13.5 % (11.5-14.5); WBC 11.7 10x3/uL (4.8-10.8)
[2019-10-02 08:39] LABS: HEMATOCRIT 31.8 % (42.0-54.0); HEMOGLOBIN 10.4 g/dL (13.5-17.5); RBC 3.45 10x6/uL (4.20-6.10)
--- NOTE | 2019-10-02 09:00 | NUR ---
ALERT AND ORIENTED X4. DRESSINGS INTACT OT ABDOMEN WITH BS NOTED X4. UP ADLIB AND STATES HAD BLOOD IN STOOL WITH DR. JACKSON AWARE. ABDOMINAL PAIN MANAGED TO DELIVERER [facility] FOR PAIN. TE.EMETRY INTACT WELL SCD'S. ENCOUARAGED TO USE CALL LIGHT FOR ASSSIT.
[2019-10-02 09:45] VITALS: BP 111/70
[2019-10-02 12:22] VITALS: Ht 188 cm; Wt 70.8 kg
[2019-10-02 13:25] VITALS: BP 108/71
[2019-10-02 17:02] VITALS: BP 100/58
[2019-10-02 20:00] VITALS: BP 93/57
[2019-10-03] VITALS: BP 99/59
[2019-10-03 04:00] VITALS: BP 103/60
[2019-10-03 06:37] LABS: BASOPHILS 0.1 % (0-2); EOSINOPHILS 2.4 % (0-7); IMMATURE GRANULOCYTES 0.3 % (0-5); MCH 30.1 pg (26.0-34.0); MCHC 32.9 g/dL (31.0-37.0); MCV 91.4 fL (80.0-100.0); MONOCYTES 13.3 % (2-11); NEUTROPHILS 58.9 % (40-80); PLATELET COUNT 277 10x3/uL (130-400); RDW 13.6 % (11.5-14.5)
[2019-10-03 06:40] LABS: HEMATOCRIT 24.6 % (42.0-54.0); HEMOGLOBIN 8.1 g/dL (13.5-17.5); RBC 2.69 10x6/uL (4.20-6.10); WBC 7.9 10x3/uL (4.8-10.8)
[2019-10-03 06:51] LABS: CALCIUM 7.4 mg/dL (8.5-10.1); CARBON DIOXIDE 27.2 mmol/L (21.0-32.0); CHLORIDE - SERUM 104 mmol/L (98-107); GLUCOSE 107 mg/dL (74-106); SODIUM 137 mmol/L (136-145)
[2019-10-03 06:54] LABS: CALC OSMOLALITY 273 mosm/kg (275-300); CREATININE - SERUM 0.7 mg/dL (0.6-1.3); UREA NITROGEN 12 mg/dL (7-18); eGFR NON AFRICAN AMERICAN > 90 mL/min (90-120)
[2019-10-03 09:19] VITALS: BP 103/51
--- NOTE | 2019-10-03 10:31 | NUR ---
ALERT AND ORIENTED X4. ABDOMEN INTACT WITH BOWEL SOUNDS NOTED X4. TELEMETRY INTACT. IV TO LEFT HAND WITH SCD;S NOTED. UP ADLIB. DENIES ANY PAIN OR DISCOMFORT AT THIS TIME.
[2019-10-03 11:51] LABS: HEMATOCRIT 25.4 % (42.0-54.0); HEMOGLOBIN 8.4 g/dL (13.5-17.5)
--- NOTE | 2019-10-03 12:03 | MORECARE ---
CASE MANAGEMENT DISCHARGE SUMMARY PATIENT: GUILLERMO KOLB UNIT: [id number] ADM DATE: 10/01/19 AGE: 59 : 56 SEX: M ROOM/BED: D.2214 AUTHOR: MARKY ALVARES PHYSICIAN: REFERRING PHYSICIAN: MAGALI MENDOZA MD DATE OF SERVICE: 10/03/19 Discharge Plan Patient Name: GUILLERMO KOLB [facility] [facility] 1960 Planned Disposition: Anticipated Discharge Date: Discharge Date: Expected LOS: Initial Reviewer: [email or web address] Initial Review Date: 10/01/2019 Generated: 10/03/19 1:02 pm Patient Name: GUILLERMO KOLB Page 14420 at 1203 All edits/amendments must be made on the electronic document DICTATION DATE: 10/03/19 120 EPIDEMIOLOGY INTERNSHIP: LUCIO 10/03/19 1202 RPT#: [id number] DC DATE: STATUS: ADM IN [facility] [address] [place] [address] END OF REPORT
--- NOTE | 2019-10-03 12:09 | MORECARE ---
CASE MANAGEMENT DISCHARGE SUMMARY PATIENT: GUILLERMO KOLB UNIT: [id number] ADM DATE: 10/01/19 AGE: 59 : 56 SEX: M ROOM/BED: D.2214 AUTHOR: GIORGIO,DOC PHYSICIAN: REFERRING PHYSICIAN: MAGALI MENDOZA MD DATE OF SERVICE: 10/03/19 Discharge Plan Patient Name: GUILLERMO KOLB Facility: [facility]:[place] : 1960 Planned Disposition: Anticipated Discharge Date: Discharge Date: Expected LOS: Initial Reviewer: [email or web address] Initial Review Date: 10/01/2019 Generated: 10/03/19 1:09 pm Comments DCP- Discharge Planning Updated by [email or web address]: Valencia Miller on 10/03/19 11:[address] Patient Name: GUILLERMO KOLB Admission Status: Elective Accout number: [id number] Admission Date: 10-01-2019 : 1960 Admission Diagnosis: Attending: MAGALI MENDOZA Current LOS: 2 Anticipated DC Date: Planned Disposition: Primary Insurance: [employer] PPO Discharge Planning Comments: CM met with patient to complete initial dc planning assessment. CM educated patient on the CM role and verbal consent given by patient to complete assessment. CM verified patient's address, phone number, and emergency contact phone numbers. Patient lives at home with a room mate. At discharge patient plans to return home and feels this is a safe discharge. Patient denied further known discharge needs at this time. Transportation provider at discharge will be his son. CM will continue to follow and will assist as needed with dc plans/needs. Plate Molder: Valencia Miller DCPIA - Discharge Planning Initial Assessment Updated by [email or web address]: Valencia Miller on 10/03/19 12:03 pm * Is the patient Alert and Oriented? Yes * PCP MARCIE * Pharmacy [facility] [address] * Preadmission Environment Home with Family * ADLs Independent * Other Equipment HOME / [facility] * List name and contact numbers for known caregivers / representatives who currently or will assist patient after discharge: Jerzy Kolb [facility] [place] - [phone] Taco Kolb [facility] - [phone] * Verbal permission to speak to the caregivers and representatives has been obtained from the patient. Yes * Community resources currently utilized None * Please name any agencies selected above. HAS HAD MALINI IN PAST * Additional services required to return to the preadmission environment? No * Can the patient safely return to the preadmission environment? Yes * Has this patient been hospitalized within the prior 30 days at any hospital? No Last DP export: 10/03/19 11:03 Patient Name: GUILLERMO KOLB Page 34068 at 1209 All edits/amendments must be made on the electronic document DICTATION DATE: 10/03/191208 HORSERADISH MAKER: LUCIO 10/03/191208 RPT#: [id number] DC DATE: STATUS: ADM IN [facility] [address] [place] [address] END OF REPORT
--- NOTE | 2019-10-03 12:10 | NUR ---
SPOKE WITH PT, CONFIRMED HE IS A SMOKER. DECLINED REFERRAL TO [facility] QUITLINE.
--- NOTE | 2019-10-03 13:00 | NUR ---
IV DISCONTINUED WITH ABDOMINAL DRESSING CHANGED USING ASEPTIC TECHNIQUE. BARB VERBALIZED UNDERSTANDNG OF DISCHARGE INSTRUCTIONS. STABLE AT TIME OF DISCHARGE.
--- NOTE | 2019-10-05 12:25 | MORECARE ---
CASE MANAGEMENT DISCHARGE SUMMARY PATIENT: GUILLERMO KOLB UNIT: [id number] ADM DATE: 10/01/19 AGE: 59 : 56 SEX: M ROOM/BED: D.2214 AUTHOR: GIORGIO,DOC PHYSICIAN: REFERRING PHYSICIAN: MAGALI MENDOZA MD DATE OF SERVICE: 10/05/19 Discharge Plan Patient Name: GUILLERMO KOLB Facility: [facility]:[place] : 1960 Planned Disposition: Anticipated Discharge Date: Discharge Date: 10/03/2019 Expected LOS: Initial Reviewer: [email or web address] Initial Review Date: 10/01/2019 Generated: 10/05/19 1:25 pm Comments DCP- Discharge Planning Updated by [email or web address]: Valencia Miller on 10/03/19 11:[address] Patient Name: GUILLERMO KOLB Admission Status: Elective Accout number: [id number] Admission Date: 10-01-2019 : 1960 Admission Diagnosis: Attending: MAGALI MENDOZA Current LOS: 2 Anticipated DC Date: Planned Disposition: Primary Insurance: [employer] PPO Discharge Planning Comments: CM met with patient to complete initial dc planning assessment. CM educated patient on the CM role and verbal consent given by patient to complete assessment. CM verified patient's address, phone number, and emergency contact phone numbers. Patient lives at home with a room mate. At discharge patient plans to return home and feels this is a safe discharge. Patient denied further known discharge needs at this time. Transportation provider at discharge will be his son. CM will continue to follow and will assist as needed with dc plans/needs. Comb Machine Operator: Valencia Miller DCPIA - Discharge Planning Initial Assessment Updated by [email or web address]: Valencia Miller on 10/03/19 12:03 pm * Is the patient Alert and Oriented? Yes * PCP MARCIE * Pharmacy [facility] [address] * Preadmission Environment Home with Family * ADLs Independent * Other Equipment HOME / [facility] * List name and contact numbers for known caregivers / representatives who currently or will assist patient after discharge: Jerzy Kolb [facility] - [phone] Taco Kolb [facility] - [phone] * Verbal permission to speak to the caregivers and representatives has been obtained from the patient. Yes * Community resources currently utilized None * Please name any agencies selected above. HAS HAD MALINI IN PAST * Additional services required to return to the preadmission environment? No * Can the patient safely return to the preadmission environment? Yes * Has this patient been hospitalized within the prior 30 days at any hospital? No Last DP export: 10/03/19 11:09 Patient Name: GUILLERMO KOLB Page 29499 at 1225 All edits/amendments must be made on the electronic document DICTATION DATE: 10/05/19 1225 DIRECTOR MULTIPLE SCLEROSIS CENTER: LUCIO 10/05/19 1225 RPT#: [id number] DC DATE:10/03/19 STATUS: DIS IN [facility] [address] [place] [address] END OF REPORT
== END 2019-10-03 13:00 | disposition home or self-care (01) | DRG 330 ==
LOC: D.MS 10-01 06:20 → D.SDCHOLD 10-01 08:30 → D.MS 10-03 13:00
PROVIDERS: Surgery; ADMIT Surgery; ATTEND Surgery
PROC: 0DBB0ZZ Excision of Ileum, Open Approach (ICD-10-PCS; principal; 2019-10-01 08:30)
DX: Z43.2 Encounter for attention to ileostomy (principal); D62 Acute posthemorrhagic anemia; J44.9 Chronic obstructive pulmonary disease, unspecified; D64.9 Anemia, unspecified; Z87.448 Personal history of other diseases of urinary system

== ENCOUNTER → 2019-10-13 14:27 | Outpatient (CLI) | payer OTHER | END | disposition home or self-care (01) | LOC: D.LABREF 14:27 | PROVIDERS: ATTEND Surgery | DX: K94.00 Colostomy complication, unspecified (principal) ==